=== PATIENT | female | born 1950 | race Caucasian/White ===

== ENCOUNTER → 2022-10-11 07:46 | Outpatient (BNVA) | payer OTHER, SELFPAY | PROVIDERS: PCP Family Medicine; Visit Provider Nurse Practitioner Family | DX: G25.0 Essential tremor (principal); G24.01 Drug induced subacute dyskinesia; T50.905A Adverse effect of unspecified drugs, medicaments and biological substances, initial encounter; G56.01 Carpal tunnel syndrome, right upper limb; R26.9 Unspecified abnormalities of gait and mobility; Z91.81 History of falling | CPT/HCPCS: 99212 ==

== ENCOUNTER 2023-01-30 15:54 | Outpatient (AMB) | payer OTHER, SELFPAY ==
--- NOTE | 2023-01-30 15:56 | MHC.OFFVIS ---
Intake Vital Signs 01/30/23 15:59 Height 5 ft 2 in Weight 120 lb 6 oz BMI 22.0 BP 118/76 Blood Pressure Location Rt brachial Position Sitting Pulse 75 Pulse Source Pulse Oximeter Pulse Oximetry (%) 98 Oxygen Delivery Method Room Air Intake Visit Reasons: 6m f/u plus MRI results discussion - Confirmed Intake Note: Patient presents for 6 month follow up MRI result discussion.Patient states I think I'm here for the MRI results, i have a bit of dementia and I forget things Allergies alendronate sodium Allergy (Severe, Verified 01/30/23 16:01) Rash amitriptyline Allergy (Severe, Verified 01/30/23 16:01) Hives latex Allergy (Severe, Verified 01/30/23 16:01) Hives meperidine [From Demerol] Allergy (Unknown, Verified 01/30/23 16:01) Unknown Medication List - Last Reconciled 01/30/23 by Annabella Hui, PETEY amlodipine 5 mg PO DAILY atorvastatin 40 mg PO DAILY benztropine 0.5 mg PO DAILY clonazepam 0.5 mg PO DAILY PRN docusate sodium 100 mg PO DAILY famotidine 0 mg PO gabapentin 400 mg PO TID hydroxyzine pamoate 25 mg PO BID melatonin 0 mg PO methylphenidate HCl ER 54 mg PO DAILY metoprolol succinate ER 25 mg PO DAILY mirtazapine 45 mg PO BEDTIME olanzapine 5 mg PO BEDTIME ondansetron HCl 0 mg PO pantoprazole 20 mg PO DAILY promethazine 25 mg PO BID trazodone 150 mg PO BEDTIME warfarin 5 - 10 mg PO DAILY HPI HPI Comments History of Present Illness Details 72-yr-old female presents for f/u visit. Pt denies any significant interval medical changes. Pt comes to discuss recent brain MRI results which showed ? central predominant atrophy vs NPH. Pt endorses stress urinary incontinence. Being prone to list to the left when sitting. She has had 2 interval falls- states feet just this way and that way, or she shuffles, has a sharp pain in her lower back, and then she falls. She has memroy difficulties- for many years. She continues to have tremor. 01/01/23, MRI Brain W/O Contrast FINDINGS: BRAIN and EXTRA-AXIAL SPACES: Ventricular prominence is disproportionate compared to the degree of sulcal prominence, but similar to the previous exam. No periventricular hyperintensity to suggest transependymal CSF migration. There are a few scattered nonspecific FLAIR hyperintensities in the white matter which most likely reflect chronic small vessel disease. No diffusion abnormality to indicate acute or subacute infarction. There is no hemorrhage, extra-axial collection, mass effect, shift of midline structures, or basal cistern effacement. The major intracranial vascular flow voids are preserved. EXTRACRANIAL SOFT TISSUES: There have been lens replacements bilaterally. Paranasal sinuses and mastoids are unremarkable. BONES: Marrow signal is preserved. IMPRESSION: Ventricular prominence is disproportionate compared to sulcal prominence, but this is similar to the previous exam. The imaging differential includes both central predominant atrophy and normal pressure hydrocephalus. Clinical correlation for evidence of normal pressure hydrocephalus. Nonspecific white matter signal changes most likely reflect chronic small vessel disease. [facility] Medical History (Updated 01/30/23 @ 17:30 by PETEY Schaeffer) Cirrhosis of liver CTS (carpal tunnel syndrome) Depression History of breast cancer History of hepatitis C HTN (hypertension) Osteoporosis Surgical History H/O: hysterectomy Hx of appendectomy Hx of cholecystectomy Family History Mother Cancer HTN (hypertension) Social History Alcohol intake: former Patient Tobacco Use Status: Never used Tobacco Substance Use Type: Marijuana Review of Systems Const All systems reviewed & are unremarkable except as noted in HPI and below Physical Exam Vital Signs: Last Vital Signs Pulse 75 01/30/23 15:59 BP 118/76 01/30/23 15:59 Pulse Ox 98 01/30/23 15:59 Oxygen Delivery Method Room Air 01/30/23 15:59 BMI result Body Mass Index 22.0 Const General: cooperative and no acute distress Orientation/consciousness: patient oriented x3 HEENT Head: Yes normocephalic Resp Effort & Inspection: normal respiratory effort and able to speak in complete sentences Neuro Other: A&O- mild STM lapses No oralbuccal involuntary movements noted today BUE postural tremor. Stands easily- short steps with low floor clearance, shuffling at times, narrower heel base. Gait is not magnetic. General: patient oriented x3 and CN's II-XI intact bilaterally Motor exam (neuro): 5/5 motor strength present throughout Psych Appearance: grossly normal Mental Status: mental status grossly normal Affect: normal affect Attitude: cooperative Assessment & Plan Assessment & Plan (1) Abnormal brain MRI: Code(s): R90.89 - Other abnormal findings on diagnostic imaging of central nervous system (2) Gait difficulty: Code(s): R26.9 - Unspecified abnormalities of gait and mobility (3) Essential tremor: Comment: Mother and dtr have tremor. Code(s): G25.0 - Essential tremor (4) Tardive dyskinesia: Code(s): G24.01 - Drug induced subacute dyskinesia Plan Reviewed brain MRI- Stable ventricular prominence disproportionate compared to sulcal prominence, but this is similar to the previous exam. The imaging differential includes both central predominant atrophy and normal pressure hydrocephalus. Nonspecific white matter signal changes most likely reflect chronic small vessel disease. ? Pt does endorse chronic cognitive changes, gait changes, and stress urinary incontinence. Her gait changes are not c/w that seen in NPH- her gait being a bit narrower, more Parkinsonian, may be a s/e of her chronic neuroleptic use. Will try pt on CD-LD, re-order PT, and monitor gait response. If no improvement in gait, we could consider NPH work-up, which would include a high-volume LP tap w/ pre/post gait assessment, however pt would need to have her warfarin (for a-fib tx) held. Other future considerations- DaTscan. f/u in 2-3 months or sooner prn. Medications: New carbidopa-levodopa 25-100 mg take w/ a cracker 30 minutes before breakfast and dinner, 1 tab PO BID 30 days 60 tabs 3RF Coding Level of Care Code Est Pt Level 4 (67808) Diagnoses Abnormal brain MRI R90.89 Gait difficulty R26.9 Essential tremor G25.0 Tardive dyskinesia G24.01
[2023-01-30 15:59] VITALS: BP 118/76; PULSE 75; O2SAT 98; BMI 22.0
== END 2023-01-30 16:45 ==
PROVIDERS: Visit Provider Nurse Practitioner Family
DX: R90.89 Other abnormal findings on diagnostic imaging of central nervous system (principal); R26.9 Unspecified abnormalities of gait and mobility; G25.0 Essential tremor; G24.01 Drug induced subacute dyskinesia
CPT/HCPCS: 99214

== ENCOUNTER → 2023-01-30 15:54 | Outpatient (BNVA) | payer OTHER, SELFPAY | PROVIDERS: Visit Provider Nurse Practitioner Family | DX: R26.9 Unspecified abnormalities of gait and mobility (principal); R90.89 Other abnormal findings on diagnostic imaging of central nervous system; G25.0 Essential tremor; G24.01 Drug induced subacute dyskinesia | CPT/HCPCS: 99212 ==

== ENCOUNTER 2023-07-02 09:41 | Outpatient (AMB) | payer OTHER, SELFPAY ==
[2023-07-02 10:04] VITALS: BP 132/74; PULSE 73; O2SAT 99; BMI 24.6
--- NOTE | 2023-07-02 10:04 | MHC.OFFVIS ---
Intake Vital Signs 07/02/23 10:04 Height 5 ft 2 in Weight 134 lb 4 oz BMI 24.6 BP 132/74 Blood Pressure Location Rt brachial Position Sitting Pulse 73 Pulse Source Pulse Oximeter Pulse Oximetry (%) 99 Oxygen Delivery Method Room Air Intake Visit Reasons: Follow up- Full Intake Note: Patient presents for follow up. My restless leg has been getting worst and my sleep issues are the same, Im having a lot of leg cramping too. Allergies alendronate sodium Allergy (Severe, Verified 07/02/23 10:12) Rash amitriptyline Allergy (Severe, Verified 07/02/23 10:12) Hives latex Allergy (Severe, Verified 07/02/23 10:12) Hives meperidine [From Demerol] Allergy (Unknown, Verified 07/02/23 10:12) Unknown Medication List - Last Reconciled 07/02/23 by PETEY Schaeffer amlodipine 5 mg PO DAILY atorvastatin 40 mg PO DAILY benztropine 0.5 mg PO DAILY carbidopa-levodopa 25-100 mg 1 tab PO BID 30 days clonazepam 0.5 mg PO DAILY PRN docusate sodium 100 mg PO DAILY famotidine 0 mg PO gabapentin 400 mg PO TID hydroxyzine pamoate 25 mg PO BID melatonin 0 mg PO methylphenidate HCl ER 54 mg PO DAILY metoprolol succinate ER 25 mg PO DAILY mirtazapine 45 mg PO BEDTIME olanzapine 5 mg PO BEDTIME ondansetron HCl 0 mg PO pantoprazole 20 mg PO DAILY promethazine 25 mg PO BID trazodone 150 mg PO BEDTIME warfarin 5 - 10 mg PO DAILY HPI HPI Comments History of Present Illness Details 72-yr-old female presents for f/u visit. Pt states she was admitted to [facility] in Jan-Feb for GI s/s- she states ? gastroparesis. She was discharged to [facility]- and is planning to be d/c'd to [facility] on July 25. Pt is most concerned about: She is having more headaches: Has had more in the last few months. Having 1 headache a day, lasts a few hours. 7/10 Bilateral temporal pressure or back of the neck a/w photophobia, phonophobia, nausea. Using Tylenol prn, takes the edge off. Denies recent head injury or reason for migraines returning. She has a h/o similar migraine but also migraine w/ visual aura- 1st migraine attack was in 4th grade. Her mother had severe migraine, both her dtr's have migraine. In the past, tried Imitrex- unsure of effect. Pt's current ET, TD, movement d/o medication regimen: CD-LD 25-100mg 1 tab bid- feels this has helped. Do medication effects last between doses: Yes ADL's: Ind Swallowing: Denies any issues Drooling: Denies Orthostatic lightheadedness: Sometimes, brief Constipation: Yes- manages w/ bowel regimen. Freezing: denies Stiffness: left arm stiffness- states h/o left arm fx. Oral-lingual- stable. Tremor: Varies- sometimes worse than others- BUE. Gait: When she has low back pain WHICH , she cannot move her RLE and may fall but she is using her walker more. Falls: Last fall- 2 months ago- states just lost her balance. Hallucinations: Denies Memory: Feels her memory is worsening. Sleep: sleeping ok. Exercise: not walking as much in the SNF. [facility] Medical History (Updated 07/02/23 @ 10:48 by PETEY Schaeffer) History of breast cancer Osteoporosis HTN (hypertension) Depression History of hepatitis C Cirrhosis of liver CTS (carpal tunnel syndrome) Surgical History H/O: hysterectomy Hx of appendectomy Hx of cholecystectomy Family History Mother Cancer HTN (hypertension) Social History Alcohol intake: former Patient Tobacco Use Status: Never used Tobacco Substance Use Type: Marijuana Review of Systems Const All systems reviewed & are unremarkable except as noted in HPI and below Physical Exam Vital Signs: Last Vital Signs Pulse 73 07/02/23 10:04 BP 132/74 07/02/23 10:04 Pulse Ox 99 07/02/23 10:04 Oxygen Delivery Method Room Air 07/02/23 10:04 BMI result Body Mass Index 24.6 Const General: cooperative and no acute distress Resp Effort & Inspection: normal respiratory effort and able to speak in complete sentences Neuro Other: General: Alert and oriented x3 Expression: Intact Voice: Soft Tremor: Bilateral upper extremity tremor Tone: Left elbow tone Dyskinesia: None Gait: Stance easily, steady gait, making her feet better, with walker Psych: Pleasant affect Assessment & Plan Assessment & Plan (1) Migraine without aura: Code(s): G43.009 - Migraine without aura, not intractable, without status migrainosus (2) Low back pain: Code(s): M54.50 - Low back pain, unspecified (3) Tardive dyskinesia: Code(s): G24.01 - Drug induced subacute dyskinesia (4) Essential tremor: Comment: Mother and dtr have tremor. Code(s): G25.0 - Essential tremor (5) Gait difficulty: Code(s): R26.9 - Unspecified abnormalities of gait and mobility Plan For migraine w/o aura: Start riboflavin 400 mg q.a.m. Start magnesium 400 mg q.h.s. Previous migraine prevention trials: Amitriptyline causes hives Start Nurtec ODT 75 mg q.d. p.r.n. Previous acute migraine treatment trials: Sumatriptan- unsure of affect. Acute migraine treatment [place] indications: All triptans due to the atrial fibrillation diagnosis For TD, PDism, gait difficulty: Check L-spine x-ray. Continue carbidopa levodopa 25-100 mg 1 tab b.i.d. for Continue to use 4 wheeled walker. Patient still is a resident at [facility]- patient did not come with any consultation forms to be completed. All orders printed and given to patient to give to nursing staff. Follow-up in 3 months or sooner as needed Orders: Orders XR lumbar spine 2-3V Today M54.50 - Low back pain, unspecified Medications: New apixaban (Eliquis) 5 mg PO BID magnesium oxide may hold for loose stools 400 mg PO BEDTIME 30 days 30 tabs 6RF G43.009 - Migraine without aura, not intractable, without status migrainosus rimegepant (Nurtec ODT) 75 mg PO ONCE 30 days PRN 16 tabs 6RF migraine headache MDD 1 tab G43.009 - Migraine without aura, not intractable, without status migrainosus riboflavin (vitamin B2) in am 400 mg PO DAILY 30 days 30 tabs 6RF G43.009 - Migraine without aura, not intractable, without status migrainosus Coding Level of Care Code Est Pt Level 4 (07102) Diagnoses Migraine without aura G43.009 Low back pain M54.50 Tardive dyskinesia G24.01 Essential tremor G25.0 Gait difficulty R26.9
== END 2023-07-02 10:53 | disposition home or self-care (01) ==
PROVIDERS: PCP Family Medicine; Visit Provider Nurse Practitioner Family
DX: G43.009 Migraine without aura, not intractable, without status migrainosus (principal); M54.50 Low back pain, unspecified; G24.01 Drug induced subacute dyskinesia; G25.0 Essential tremor; R26.9 Unspecified abnormalities of gait and mobility
CPT/HCPCS: 99214

== ENCOUNTER → 2023-07-02 09:41 | Outpatient (BNVA) | payer OTHER, SELFPAY | PROVIDERS: PCP Family Medicine; Visit Provider Nurse Practitioner Family | DX: G43.009 Migraine without aura, not intractable, without status migrainosus (principal); G24.01 Drug induced subacute dyskinesia; G25.0 Essential tremor; M54.50 Low back pain, unspecified; R26.9 Unspecified abnormalities of gait and mobility | CPT/HCPCS: 99212 ==

== ENCOUNTER 2023-10-04 09:23 | Outpatient (AMB) | payer OTHER, SELFPAY ==
--- NOTE | 2023-10-04 09:28 | A.OFFVIS_ITS ---
Vital Signs 10/04/23 09:29 Height 5 ft 2 in Weight 133 lb 6 oz BMI 24.4 BP 114/72 Blood Pressure Location Rt brachial Position Sitting Intake Visit Reasons: 3 month/ FU-1st phone mbx-home phon lvm Intake Note: Patient presents for 3 month follow up. Patient has fallen a few times and ge tting a lot of headaches. Allergies alendronate sodium Allergy (Severe, Verified 10/04/23 09:32) Rash amitriptyline Allergy (Severe, Verified 10/04/23 09:32) Hives latex Allergy (Severe, Verified 10/04/23 09:32) Hives meperidine [From Demerol] Allergy (Unknown, Verified 10/04/23 09:32) Unknown HPI Comments Details: 73-yr-old female presents for f/u visit. Pt denies any significant interval medical history changes. She is planning to move from [facility] to [facility] next month. Pt states today she is most concerned about her tremor. The tremor is increased both with action and rest- makes it difficult to write, hold a coffee cup. Sometimes her eyes and lips tremor, which is bothersome to her. She continues to have a daily moderate to severe migraine every day, often wakes up with the headache. She often needs to lay for 1/2-1 hr. She uses Tylenol most days prn. She did not start the B2, Mag, or prn Nurtec. Pt's current tremor medication regimen: CD-LD 25-100mg 1 tab bid. Benzotropine- 0.5mg. ADL's: Ind Swallowing: Denies any issues Drooling: Denies Orthostatic lightheadedness: Denies Constipation: Yes- manages w/ bowel regimen. GI: Prone to nausea, especially in the am. Using Zofran 8mg prn helps. Morelos snot use reglan regularly. Freezing: denies Stiffness: Some in both arms Oral-lingual movement- stable, do not interfere w/ eating. Tremor: as above Gait: Improved with using her 4 wheeled walker. Falls: She has had a few falls- feels like her legs just give out and she tips to the right or the left. Hallucinations: Denies Memory: Feels her memory is poor- more so STM lapses. Sleep: Sleeping ok. Exercise: Walking more now taht the weather is nicer. [facility] Medical History (Updated 07/02/23 @ 10:48 by PETEY Schaeffer) History of breast cancer Osteoporosis HTN (hypertension) Depression History of hepatitis C Cirrhosis of liver CTS (carpal tunnel syndrome) Surgical History H/O: hysterectomy Hx of appendectomy Hx of cholecystectomy Family History Mother Cancer HTN (hypertension) Social History Alcohol intake: former Patient Tobacco Use Status: Never used Tobacco Substance Use Type: Marijuana Review of Systems Const All systems reviewed & are unremarkable except as noted in HPI and below Physical Exam Vital Signs: Last Vital Signs BP 114/72 10/04/23 09:29 BMI result Body Mass Index 24.4 Const General: cooperative and no acute distress Resp Effort & Inspection: normal respiratory effort and able to speak in complete sentences Neuro Other: General: Alert and oriented x3 Expression: Intact Voice: Soft Tremor: Bilateral upper extremity tremor Tone: Left elbow tone Dyskinesia: Mild oral-buccal movements. Gait: Stands easily, steady gait with walker Psych: Pleasant affect Assessment & Plan Assessment & Plan (1) Essential tremor: Comment: Mother and dtr have tremor. Code(s): G25.0 - Essential tremor Category: Medical (2) Tardive dyskinesia: Code(s): G24.01 - Drug induced subacute dyskinesia Category: Medical (3) Migraine without aura: Code(s): G43.009 - Migraine without aura, not intractable, without status migrainosus Category: Medical (4) Gait difficulty: Code(s): R26.9 - Unspecified abnormalities of gait and mobility Category: Medical Plan For migraine w/o aura prevention: Start migraine prveention, to minimize prn Tylenol use and in hopes this reduces daily mod-severe migraine as well as frequent bouts of nausea. Start riboflavin 400 mg q.a.m. Start magnesium 400 mg q.h.s. Start Emgality: Loading dose 120mg sc x's 2 (240mg total dose) x's 1, then in 1 month start Maintenance dose: 120mg sc x's 1. Will need prior-auth. Continue Metoprolol- used for a-fib, BP. Previous migraine prevention trials: Amitriptyline caused hives For acute migraine tx: Start Nurtec ODT 75 mg q.d. p.r.n. Will need prior-auth. Goal to decrease prn Tylenol use- this may exacerbate headache frequency. Previous acute migraine treatment trials: Sumatriptan- unsure of affect. Acute migraine treatment Contraindications: All triptans due to the atrial fibrillation diagnosis For TD, PDism, gait difficulty: Increase carbidopa-levodopa 25-100 mg 1 tab b.i.d. to 1 tab t.i.d. May continue Benzotropine 0,5mg qhs for now. Continue to use 4 wheeled walker. [phone] to discuss above tx plan, prior auth's needed. Follow-up in 6 months or sooner as needed Coding Level of Care Code Est Pt Level 4 (28846) Diagnoses Essential tremor G25.0 Tardive dyskinesia G24.01 Migraine without aura G43.009 Gait difficulty R26.9
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
--- OUTSIDE RECORDS SUMMARY | 2023-10-04 09:28 | XMS_ITS | Continuity of Care Document ---
Author Organization [facility] Address [address] [place] [address]- Care Team Providers Care Materials Analyst Name Role Phone Jagdeep Pederson DO Primary Care Physician Encounter [facility] Date(s): 12/18/22 - 01/17/[address] [address]- Allergies, Adverse Reactions, Alerts Substance Reaction Severity Status amitriptyline hives Active alendronate Rash Active Demerol unsure Active Latex hives Active Peanuts hives Active Immunizations Given and Recorded Vaccine Date Status Refusal Reason influenza virus vaccine, inactivated 03/28/22 Qasim rded influenza virus vaccine, inactivated 1 03/03/21 Gi joseph influenza virus vaccine, inactivated 05/12/19 Give n influenza virus vaccine, inactivated 02/11/17 Qasim rded influenza virus vaccine, inactivated 2 04/18/07 Gi joseph [id number] 12y+ bivalent booster vax 03/28/22 Recorded SARS-CoV-2 [...] diphtheria-tetanus toxoids (DT) 04/22/98 Given 1Result Comment: [id number] 2Admin Note: GIVEN BY DR PINZON 3Result Comment: [id number] Medications amLODIPine 5 mg oral tablet 1 tablet, By Mouth, Daily, ^1R1., # 28 tablet, 5 Refills, Maintenance, 01/10/23 10:32:00 EDT, [facility], 156.7, cm, 01/04/23 9:40:00 EDT, Height, 53.9, kg, 12/18/22 9:23:00 EDT, Dry Weight Start Date: 01/10/23 Status: Ordered atorvastatin 80 mg oral tablet 1 tablet = 80 mg, By Mouth, Daily, # 28 tablet, 5 Refills, Maintenance, 01/04/23 9:52:00 EDT, [facility], Partial fill upon patient request if the prescription is for a schedule II opioid drug., 156.7, cm, 01/04/23 9:40:00 EDT, Height,... Start Date: 01/04/23 Status: Ordered benztropine 0.5 mg oral tablet 0.5 mg, 1, tablet, By Mouth, Daily at bedtime, # 30 tablet, Refills 0, Maintenance, 12/07/22 11:32:00 EDT, Partial fill upon patient request if the prescription is for a schedule II opioid drug. Start Date: 12/07/22 Status: Ordered clonazePAM 0.5 mg oral tablet 1 tablet = 0.5 mg, By Mouth, 2 times a day, PRN Anxiety, # 30 tablet, 0 Refills, Maintenance, 08/28/22 14:39:00 EDT, Tablet, [facility], Partial fill upon patient request if the prescription is for a schedule II opioid drug., 158.5, cm, 07/31/... Start Date: 08/28/22 Status: Ordered D3-50 oral capsule 1 capsule, By Mouth, Every week, VIAL., # 5 capsule, 0 Refills, Maintenance, 01/10/23 17:44:00 EDT,[facility], 156.7, cm, 01/04/23 9:40:00 EDT, Height, 53.9, kg, 12/18/22 9:23:00 EDT, Dry Weight Start Date: 01/10/23 Status: Ordered docusate sodium 100 mg oral capsule 1 capsule, By Mouth, Daily at bedtime, ^1R4., # 28 capsule, 5 Refills, Maintenance, 01/10/23 10:34:00 EDT, [facility], 156.7, cm, 01/04/23 9:40:00 EDT, Height, 53.9, kg, 12/18/22 9:23:00 EDT,Dry Weight Start Date: 01/10/23 Status: Ordered famotidine 40 mg oral tablet 1 tablet = 40 mg, By Mouth, Daily at bedtime, # 30 tablet, 0 Refills, Maintenance, 12/07/22 11:33:00 EDT, Tablet, Partial fill upon patient request if the prescription is for a schedule II opioid drug. Start Date: 12/07/22 Status: Ordered gabapentin 400 mg oral capsule 400 mg, 1, capsule, By Mouth, 3 times a day, # 90 capsule, Refills 1, Tot. Refills 1, Maintenance, 12/22/21 11:37:00 EDT, Route to Pharmacy Electronically, [id number], Partial fill upon patient request if the prescription is for a sche... Start Date: 12/22/21 Status: Ordered hydrOXYzine pamoate 25 mg oral capsule = 25 mg, By Mouth, Every 6 hours, PRN Anxiety, # 60 capsule, 5 Refills, Maintenance, 08/28/22 13:39:00 EDT, Capsule, [facility], Partial fill upon patient request if the prescription is for aschedule II opioid drug., 158.5, cm, 07/31/22 9:53:... Start Date: 08/28/22 Status: Ordered melatonin 3 mg oral tablet = 9 mg, By Mouth, Daily at bedtime, # 270 tablet, 5 Refills, Maintenance, 08/28/22 13:39:00 EDT, Tablet, [facility], Partial fill upon patient request if the prescription is for a schedule IIopioid drug., 158.5, cm, 07/31/22 9:53:00 EST, [facility]... Start Date: 08/28/22 Status: Ordered methylphenidate 54 mg oral tablet, extended release TAKE 1 TABLET BY MOUTH EVERY MORNING Start Date: 02/08/22 Status: Ordered Metoprolol Succinate ER 25 mg oral tablet, extended release 1 tablet, By Mouth, Daily, ^1R4., # 28 tablet, 5 Refills, Maintenance, 01/10/23 12:22:00 EDT, [facility], 156.7, cm, 01/04/23 9:40:00 EDT, Height, 53.9, kg, 12/18/22 9:23:00 EDT, Dry Weight Start Date: 01/10/23 Status: Ordered mirtazapine 30 mg oral tablet 1 tablet = 30 mg, By Mouth, Daily at bedtime, # 30 tablet, 0 Refills, Maintenance, 12/07/22 11:32:00 EDT, Tablet, Partial fill upon patient request if the prescription is for a schedule II opioid drug. Start Date: 12/07/22 Status: Ordered Nutritional Supplements See Instructions, # 30 each, Refills 11, Tot. Refills 11, Maintenance, Ensure one bottle a day -vanilla flavor, 12/26/22 6:42:00 EDT, Supply, 156.7, cm, 12/18/22 10:10:00 EDT, Height, 53.9, kg, 12/18/22 9:23:00 EDT, Dry Weight Start Date: 12/26/22 Status: Ordered olanzapine 5 mg oral tablet 5 mg, 1, tablet, By Mouth, Daily, # 30 tablet, Refills 0, Maintenance, 12/07/22 11:32:00 EDT, Partial fill upon patient request if the prescription is for a schedule II opioid drug. Start Date: 12/07/22 Status: Ordered ondansetron 4 mg oral tablet 1 tablet, By Mouth, Every 8 hours, PRN NEEDED FOR NAUSEA/VOMITING (VIAL), # 15 tablet, 0 Refills, Maintenance, 01/10/23 12:22:00 EDT, [facility], 156.7, cm, 01/04/23 9:40:00 EDT, Height, 53.9, kg, 12/18/22 9:23:00 EDT, Dry Weight Start Date: 01/10/23 Status: Ordered pantoprazole 20 mg oral delayed release tablet 1 tablet, By Mouth, Daily, ^1R1., # 28 tablet, 2 Refills, Maintenance, 01/10/23 10:32:00 EDT, 156.7, cm, 01/04/23 9:40:00 EDT, Height, 53.9, kg, 12/18/22 9:23:00 EDT, Dry Weight Start Date: 01/10/23 Status: Ordered promethazine 12.5 mg oral tablet 1 tablet = 12.5 mg, By Mouth, Every 6 hours, PRN for motion sickness, # 120 tablet, 0 Refills, Maintenance, 06/24/22 14:25:00 EST, Tablet, [facility] #[id number], Partial fill upon patient request if the prescription is for a schedule II opioid dr... Start Date: 06/24/22 Stop Date: 07/24/22 Status: Ordered propranolol 10 mg oral tablet 10 mg, 1, tablet, By Mouth, 3 times a day, # 90 tablet, Refills 0, Tot. Refills 0, Maintenance, 07/09/22 13:10:00 EST, Route to Pharmacy Electronically, [id number], Partial fill upon patient request if the prescription is for a schedule II... Start Date: 07/09/22 Status: Ordered traZODone 150 mg oral tablet 1 tablet, By Mouth, Daily at bedtime, # 28 tablet, 8 Refills, Maintenance, 08/28/22 13:39:00 EDT, [facility], 158.5, cm, 07/31/22 9:53:00 EST, Height, 63, kg, 12/12/21 15:07:00 EDT, Dry Weight Start Date: 08/28/22 Status: Ordered warfarin 5 mg oral tablet See Instructions, Take 1 to 2 tablets by mouth daily as directed by [facility], # 180 tablet, 0 Refills, Maintenance, 01/03/23 15:48:00 EDT, [facility], Partial fill upon patient requestif the prescription is for a schedule II opioid luh... Start Date: 01/03/23 Status: Ordered warfarin 5 mg oral tablet See Instructions, take 1 to 2 tablets by mouth daily as directed by [facility], # 180 tablet, 0Refills, Maintenance, 09/12/22 14:51:00 EDT, [facility] #[id number], Partial fill upon patient request if the prescription is for a schedule II opi... Start Date: 09/12/22 Status: Ordered Problem List Condition Confirmation Course Effective Dates Status Health Status Informant Gait disorder Confirmed Active Dilated cbd, acquired Confirmed Active Anxiety disorder Confirmed Active At low risk for fall Confirmed Active A-fib Confirmed Active Attention-deficit/hyper activity disorder Confirmed Active Chest pain Confirmed Active Common bile duct dilation Confirmed Active Cirrhosis Confirmed Active Cognitive disorder Confirmed Active COPD - Chronic obstructive pulmonary disease Confirmed Active CAD (coronary artery disease) Confirmed Active Disc degeneration, lumbar Confirmed Active Depression, Dr. Ministerio Villegas Confirmed Active Bladder disorder Confirmed Active Displacement of cervical intervertebral disc Confirmed Active Dyslipidemia Confirmed Active Esophageal varices Confirmed Active Essential tremor Confirmed Active Familial tremor Confirmed Active Hx of osteoporosis Confirmed Active [...] Confirmed Active Irritable bowel syndrome Confirmed Active Osteoporosis Confirmed Active PAF (paroxysmal atrial fibrillation) Confirmed Active Wellness examination Confirmed Active Screening mammogram for breast cancer Confirmed Active Thrombocytopenia Confirmed Active Prediabetes Confirmed Active Tardive dyskinesia Confirmed Active Tremor Confirmed Active Weight loss Confirmed Active Social History Social History Type Response Tobacco Other: quit 1969. Sex Implantable Device List Procedure Provider Procedure Date Device Type Site Unknown Unknown 09/14/22 Unknown Bladder Device Identifier Serial Number Lot or Batch Number Manufacturing Date Expiration Date Distinct Identification Code MRI Safety Implantable Status Assigning Authority Unknown 1 Unknown Unknown Unknown Unknown Unknown Unknown Active U nknown 1Model: Medtronic [id number] #: [id number] can turn it on and off for MRIs Patient Care team information Care Team Personnel Name: Anne Jones RN Position: [facility] RN Member Role: Primary Care Nurse Name: Jagdeep Pederson DO Position: [facility] Physician - Primary Care Member Role: PCP Address: Address: [address] [place] [address] [place] [address]- Name: Hawa Etienne RN Position: [facility] RN Member Role: Primary Care Nurse Care Team Related Persons Name: TRINI AGMING Address: home [address], [place] Name: ADAM SCHUSTER Address: home [address] [place], [place] Name: ROXY DUENAS Address: home [address] [place], [place] Name: TRINI DSOUZA Address: home [address], [place]
[2023-10-04 09:29] VITALS: BP 114/72; BMI 24.4
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
--- OUTSIDE RECORDS SUMMARY | 2023-10-04 09:29 | XMS_ITS | Continuity of Care Document ---
Author Organization [facility] Address [address] [place] [address]- Care Team Providers Care Coil Repair Technician Name Role Phone Jagdeep Pederson DO Primary Care Physician Encounter [facility] Date(s): 03/27/23 - 04/26/23 [facility] [address] [place] [address]- Allergies, Adverse Reactions, Alerts Substance Reaction Severity Status amitriptyline hives Active Demerol unsure Active alendronate Rash Active Latex hives Active Peanuts hives Active Immunizations Given and Recorded Vaccine Date Status Refusal Reason SARS-CoV-2(COVID-19)mRNA-LNP vac([id number]) 03/23/23 Recorded influenza virus vaccine, inactivated 01/26/23 Qasim rded influenza virus vaccine, inactivated 03/28/22 Qasim rded influenza virus vaccine, inactivated 1 03/03/21 Gi joseph influenza virus vaccine, inactivated 05/12/19 Give n influenza virus vaccine, inactivated 02/11/17 Qasim rded influenza virus vaccine, inactivated 2 04/18/07 Gi joseph [id number] 12y+ bivalent booster vax 03/28/22 Recorded SARS-CoV-2 [...] diphtheria-tetanus toxoids (DT) 04/22/98 Given 1Result Comment: [id number] 2Admin Note: GIVEN BY DR PINZON 3Result Comment: [id number] Medications amLODIPine 5 mg oral tablet 1 tablet, By Mouth, Daily, ^1R1., # 28 tablet, 5 Refills, Maintenance, 01/10/23 10:32:00 EDT, [facility], 156.7, cm, 01/04/23 9:40:00 EDT, Height, 53.9, kg, 12/18/22 9:23:00 EDT, Dry Weight Start Date: 01/10/23 Status: Ordered atorvastatin 80 mg oral tablet 1 tablet = 80 mg, By Mouth, Daily, # 28 tablet, 5 Refills, Maintenance, 01/04/23 9:52:00 EDT, Tablet, [facility], Partial fill upon patient request if [...] 0 Refills, Maintenance, 08/28/22 14:39:00 EDT, Tablet, [facility], Partial fill upon patient request if the prescription is for a schedule II opioid drug., 158.5, cm, 07/31/... Start Date: 08/28/22 Status: Ordered gabapentin 400 mg oral capsule 400 mg, 1, capsule, By Mouth, 3 times a day, # 120 capsule, Refills 0, Maintenance, 03/31/23 13:26:00 EST, Partial fill upon patient request if the prescription is for a schedule II opioid drug. Start Date: 03/31/23 Status: Ordered melatonin 3 mg oral tablet = 9 mg, By Mouth, Daily at bedtime, 0 Refills, Maintenance, 04/04/23 15:00:00 EST, Tablet, Partial fill upon patient request if the prescription is for a schedule II opioid drug. Start Date: 04/04/23 Status: Ordered methylphenidate 54 mg oral tablet, extended release TAKE 1 TABLET BY MOUTH EVERY MORNING Start Date: 02/08/22 Status: Ordered Metoprolol Succinate ER 25 mg oral tablet, extended release 1 tablet, By Mouth, Daily, ^1R4., # 28 tablet, 5 Refills, Maintenance, 01/10/23 12:22:00 EDT, [facility], 156.7, cm, 01/04/23 9:40:00 EDT, Height, [...] tablet, 0 Refills, Maintenance, 04/02/23 10:44:00 EST, [facility], 158.5, cm, 04/02/23 7:47:00 EST, Height, 51.6, kg, 03/31/23 17:10:00 EST, Dry Weight Start Date: 04/02/23 Status: Ordered pantoprazole 20 mg oral delayed release tablet 1 tablet, By Mouth, Daily, ^1R1., # 28 tablet, 2 Refills, Maintenance, 04/02/23 10:44:00 EST, 158.5, cm, 04/02/23 7:47:00 EST, Height, 51.6, kg, 03/31/23 17:10:00 EST, Dry Weight Start Date: 04/02/23 Status: Ordered sucralfate 1 gm oral tablet 1 Gm, 1, tablet, By Mouth, 4 times a day, # 120 tablet, Refills 0, Maintenance, 03/31/23 13:25:00 EST, Partial fill upon patient request if the prescription is for a schedule II opioid drug. Start Date: 03/31/23 Status: Ordered traZODone 50 mg oral tablet 150 mg, By Mouth, Daily at bedtime, Refills 0, Maintenance, 04/04/23 15:00:00 EST, Partial fill upon patient request if the prescription is for a schedule II opioid drug. Start Date: 04/04/23 Status: Ordered warfarin 5 mg oral tablet See Instructions, take 1 to 2 tablets by mouth daily as directed [facility], # 180 tablet, 0Refills, Maintenance, 04/17/23 16:10:00 EST, [facility], Partial fill upon patient request if the prescription is for a schedule II opioid drug... Start Date: 04/17/23 Status: Ordered Problem List Condition Confirmation Course [...] Unknown Unknown Active U nknown 1Model: Medtronic [id number] #: [id number] can turn it on and off for [...] Primary Care Member Role: PCP Address: Address: [address] [place] [address] Primary Care [place], [place] - Name: Hawa Etienne RN Position: S RN Member Role: Primary Care Nurse Name: Marianne Phelan RN Position: S RN Member Role: Primary Care Nurse Care Team Related Persons Name: TRINI GAMING Address: [address] [place], [place] Name: ADAM SCHUSTER Address: [address] [place], [place] Name: ROXY DUENAS Address: [address] [place] [address] Name: MEÑO DAVIS
--- OUTSIDE RECORDS SUMMARY | 2023-10-04 09:29 | XMS_ITS | Continuity of Care Document ---
Author Organization [facility] and Diabetes Address [address] [place] [address]- Care Team Providers Care Outside Cutter Hand Name Role Phone Jagdeep Pederson DO Primary Care Physician Encounter [facility] [place] Date(s): 12/12/22 - 01/11/23 [facility] [address] [place] [id number]- Allergies, Adverse Reactions, Alerts Substance Reaction Severity Status amitriptyline hives Active alendronate Rash Active Demerol unsure Active Latex hives Active Peanuts hives Active Immunizations Given and Recorded Vaccine Date Status Refusal Reason influenza virus vaccine, inactivated 03/28/22 Qasmi rded influenza virus vaccine, inactivated 1 03/03/21 Gi joseph influenza virus vaccine, inactivated 05/12/19 Give n influenza virus vaccine, inactivated 02/11/17 Qasim rded influenza virus vaccine, inactivated 2 04/18/07 Gi joseph [id number] 12y+ bivalent booster vax 03/28/22 Recorded SARS-CoV-2 [...] diphtheria-tetanus toxoids (DT) 04/22/98 Given 1Result Comment: [id number] 2Admin Note: GIVEN BY DR PINZON 3Result Comment: [id number] Medications amLODIPine 5 mg oral tablet 1 tablet, By Mouth, Daily, ^1R1., # 28 tablet, 5 Refills, Maintenance, 01/10/23 10:32:00 EDT, [facility], 156.7, cm, 01/04/23 9:40:00 EDT, Height, 53.9, kg, 12/18/22 9:23:00 EDT, Dry Weight Start Date: 01/10/23 Status: Ordered atorvastatin 80 mg oral tablet 1 tablet = 80 mg, By Mouth, Daily, # 28 tablet, 5 Refills, Maintenance, 01/04/23 9:52:00 EDT, Tablet, [facility], Partial fill upon patient request if [...] 0 Refills, Maintenance, 08/28/22 14:39:00 EDT, Tablet, [facility], Partial fill upon patient request if the prescription is for a schedule II opioid drug., 158.5, cm, 07/31/... Start Date: 08/28/22 Status: Ordered D3-50 oral capsule 1 capsule, By Mouth, Every week, VIAL., # 5 capsule, 0 Refills, Maintenance, 01/10/23 17:44:00 EDT,[facility], 156.7, cm, 01/04/23 9:40:00 EDT, Height, 53.9, kg, 12/18/22 9:23:00 EDT, Dry Weight Start Date: 01/10/23 Status: Ordered docusate sodium 100 mg oral capsule 1 capsule, By Mouth, Daily at bedtime, ^1R4., # 28 capsule, 5 Refills, Maintenance, 01/10/23 10:34:00 EDT, [facility], 156.7, cm, 01/04/23 9:40:00 EDT, [...] 12/22/21 11:37:00 EDT, Route to Pharmacy Electronically, [id number], Partial fill upon patient request if the prescription is for a sche... Start Date: 12/22/21 Status: Ordered hydrOXYzine pamoate 25 mg oral capsule = 25 mg, By Mouth, Every 6 hours, PRN Anxiety, # 60 capsule, 5 Refills, Maintenance, 08/28/22 13:39:00 EDT, Capsule, [facility], Partial fill upon patient request if the prescription is for aschedule II opioid drug., 158.5, cm, 07/31/22 9:53:... Start Date: 08/28/22 Status: Ordered melatonin 3 mg oral tablet = 9 mg, By Mouth, Daily at bedtime, # 270 tablet, 5 Refills, Maintenance, 08/28/22 13:39:00 EDT, Tablet, [facility], Partial fill upon patient request [...] tablet, 5 Refills, Maintenance, 01/10/23 12:22:00 EDT, [facility], 156.7, cm, 01/04/23 9:40:00 EDT, [...] tablet, 0 Refills, Maintenance, 01/10/23 12:22:00 EDT, [facility], 156.7, cm, 01/04/23 9:40:00 EDT, [...] 0 Refills, Maintenance, 06/24/22 14:25:00 EST, Tablet, [facility][id number], Partial fill upon patient request if the [...] tablet, 8 Refills, Maintenance, 08/28/22 13:39:00 EDT, [facility], 158.5, cm, 07/31/22 9:53:00 EST, Height, 63, kg, 12/12/21 15:07:00 EDT, Dry Weight Start Date: 08/28/22 Status: Ordered warfarin 5 mg oral tablet See Instructions, Take 1 to 2 tablets by mouth daily as directed by coumad[facility] clinic, # 180 tablet, 0 Refills, Maintenance, 01/03/23 15:48:00 EDT, [facility], Partial fill upon patient requestif the prescription is for a schedule II opioid luh... Start Date: 01/03/23 Status: Ordered warfarin 5 mg oral tablet See Instructions, take 1 to 2 tablets by mouth daily as directed by [facility], # 180 tablet, 0Refills, Maintenance, 09/12/22 14:51:00 EDT, [facility] #[id number], Partial fill upon patient request if the [...] Unknown Unknown Active U nknown 1Model: Medtronic [id number] #: [id number] can turn it on and off for MRIs Patient Care team information Care Team Personnel Name: Anne Jones RN Position: [facility] RN Member Role: Primary Care Nurse Name: Jagdeep Pederson DO Position: [facility] Physician - Primary Care Member Role: PCP Address: Address: [address] [place] [address] [place] [address]- Name: Hawa Etienne RN Position: [facility] RN Member Role: Primary Care Nurse Care Team Related Persons Name: TRINI GAMING Address: home [address], [place] Name: ADAM SCHUSTER Address: home [address] [place], [place] Name: ROXY DUENAS Address: home [address] [place], [place] Name: TRINI DSOUZA Address: home [address], [place]
--- OUTSIDE RECORDS SUMMARY | 2023-10-04 09:29 | XMS_ITS | Continuity of Care Document ---
Author Organization [facility] Address [address] [place] [address]- Care Team Providers Care Database Dba Name Role Phone Jagdeep Pederson DO Primary Care Physician Encounter [facility] [place] Date(s): 08/26/23 - 08/26/[address] [address]- Discharge Disposition: A-D/C Home Attending Physician: Yuliya North MD Admitting Physician: Yuliya North MD Referring Physician: Not on Staff, Referring MD Allergies, Adverse Reactions, Alerts Substance Reaction Severity Status amitriptyline hives Active Demerol unsure Active Latex hives Active Peanuts hives Active alendronate Rash Active Immunizations Given and Recorded Vaccine Date Status Refusal Reason SARS-CoV-2(COVID-19)mRNA-LNP vac([id number]) 03/23/23 Recorded influenza virus vaccine, inactivated 01/26/23 Qasim rded influenza virus vaccine, inactivated 03/28/22 Qasim rded influenza virus vaccine, inactivated 1 03/03/21 Gi joseph influenza virus vaccine, inactivated 05/12/19 Give n influenza virus vaccine, inactivated 02/11/17 Qasim rded influenza virus vaccine, inactivated 2 04/18/07 Gi joseph [id number] 12y+ bivalent booster vax 03/28/22 Recorded SARS-CoV-2 [...] diphtheria-tetanus toxoids (DT) 04/22/98 Given 1Result Comment: [id number] 2Admin Note: GIVEN BY DR PINZON 3Result Comment: [id number] Medications amLODIPine 5 mg oral tablet 1 tablet, By Mouth, Daily, ^1R1., # 28 tablet, 5 Refills, Maintenance, 01/10/23 10:32:00 EDT, [email or web address], 156.7, cm, 01/04/23 9:40:00 EDT, Height, 53.9, kg, 12/18/22 9:23:00 EDT, Dry Weight Start Date: 01/10/23 Status: Ordered atorvastatin 80 mg oral tablet 1 tablet = 80 mg, By Mouth, Daily, # 28 tablet, 5 Refills, Maintenance, 01/04/23 9:52:00 EDT, Tablet, [email or web address], Partial fill upon patient request if [...] 0 Refills, Maintenance, 08/28/22 14:39:00 EDT, Tablet, [email or web address], Partial fill upon patient request if [...] tablet, 5 Refills, Maintenance, 01/10/23 12:22:00 EDT, [facility], 156.7, cm, 01/04/23 9:40:00 EDT, Height, 53.9, kg, 12/18/22 9:23:00 EDT, Dry Weight Start Date: 01/10/23 Status: Ordered MiraLax oral powder for reconstitution See Instructions, 17 Gm By Mouth Twice daily until having daily soft bowel movements, then once daily, # 255 Gm, 0 Refills, Maintenance, 08/26/23 18:05:00 EDT, [facility], Partial fill upon patient request if the prescription is for a schedule II opio... Start Date: 08/26/23 Status: Ordered mirtazapine 30 mg oral tablet [...] tablet, 0 Refills, Maintenance, 04/02/23 10:44:00 EST, [facility], 158.5, cm, 04/02/23 7:47:00 EST, Height, 51.6, kg, 03/31/23 17:10:00 EST, Dry Weight Start Date: 04/02/23 Status: Ordered ondansetron 8 mg oral tablet, disintegrating 1 tablet = 8 mg, By Mouth, 3 times a day, PRN Nausea & Vomiting, # 12 tablet, 0 Refills, Maintenance, 08/26/23 17:41:00 EDT, [facility]t, Partial fill upon patient request if the prescription is for a schedule II opioid drug., 158, cm, 08/26/23 12:21:0... Start Date: 08/26/23 Status: Ordered pantoprazole 20 mg oral delayed [...] Exam Date Time Procedure Performing Provider Status 08/26/23 3:[address] Abd/Pelvis W/ IV + Oral Contrast Cynthia Goldsmith; Auth (Verified) Notes: (CT Abd/Pelvis W/ IV + Oral Contrast) Reason For Exam: abdominal pain;Other: RESULT: CT Abd/Pelvis W/ IV + Oral Contrast CT Abd/Pelvis W/ IV + Oral Contrast Hx of Present Illness: hx gastroparesis, no BM since , lower abd px. 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 pt provided 4mg IV zofran per EMS; Reason: Other:; abdominal pain; Clinical Question(s): Other:; abd pain, gastropareiss; Order Comment: 08 26 2023 14:36:59 EDT went to get patient and her iv was pulled out and bag on saline was on the floor and bed. no RADIO ASSEMBLER notes in [facility] TECHNIQUE: Spiral CT through the abdomen and pelvis with IV contrast formatted in 3 planes. 100 cc of Omnipaque 300 was administered intravenously. This study was performed without oral contrast. Weight-based protocol using automatic tube modulation was used to optimize exposure parameters. COMPARISON: 06/06/2023 CT angiography of the abdomen and pelvis. FINDINGS: Attic Blower View Findings, Lines and Tubes: None. Visualized Chest: Lung bases are clear. No pleural effusion. The heart is normal in size. No pericardial effusion. Collapsed right breast saline implant. Diaphragm: Normal. Liver: Mildly nodular liver surface suggesting cirrhosis/hepatic fibrosis. No focal masses. Gallbladder: Prior cholecystectomy. Bile ducts: Mild intrahepatic hepatic bile duct dilation, likely due to postcholecystectomy change. Spleen: Normal. Pancreas: Normal. Adrenal glands: Normal. Kidneys and ureters: No hydronephrosis, stones, or suspicious masses. Bladder: Normal. Reproductive organs: Prior hysterectomy. No adnexal masses. Stomach, small bowel, and large bowel: The stomach is normal. The small bowel is normal in caliber,with no evidence of bowel obstruction. Enteric contrast material reaches the ileum the rectum is normal. Large amount of stool predominantly within the ascending and transverse colon. Minimal wall thickening in the right hemicolon, particularly the ascending portion without significant surrounding inflammatory changes could indicate a mild colitis versus a component of portal colopathy. Colonic diverticulosis without findings of an acute diverticulitis. Appendix: Not seen, but no evidence of appendicitis. Peritoneum and retroperitoneum: No ascites or pneumoperitoneum. No omental or mesenteric lesions. Lymph nodes: No enlarged lymph nodes. Blood vessels: Mild vascular calcifications but no aneurysm. No evidence of venous thrombosis. Abdominal and pelvic wall: Sacral nerve stimulator with battery pack in the right gluteal region and lead terminating in the left pelvis.. Bones: No acute abnormality. IMPRESSION: 1. Large amount of stool within the colon, prominently within the ascending and transverse segments. Minimal wall thickening of the right hemicolon, without significant surrounding inflammatory changes is similar to prior study on 06/06/2023, and may indicate a mild colitis, or a component of portalcolopathy. 2. Cirrhotic liver. WSN: [id number] Ordering Physician: Jong Lopez Dictated By: Justin Hicks MD Dictated Date/Time: 08/26/23 4:23 pm Reviewed By: Justin Hicks MD Signed By: Justin Hicks MD Signed Date/Time: 08/26/23 4:23 pm Transcribed By: RAYMOND Transcribed Date/Time: 08/26/23 4:13 pm Vital Signs Most recent to oldest [Reference Range]: 1 2 3 Height 158 cm (08/26/23 12:21 PM) Weight 59.5 kg (08/26/23 12:21 PM) Oxygen Saturation [94-100 %] 97 % (08/26/23 5:37 PM) 97 % (08/26/23 3:00 PM) 98 % (08/26/23 1:26 PM) Pulse Rate [55-90 bpm] 74 bpm (08/26/23 5:37 PM) 71 bpm (08/26/23 3:00 PM) 75 bpm (08/26/23 1:26 PM) Blood Pressure [90-138/55-84 mm Hg] 140/107mm Hg *H* (08/26/23 5:37 PM) 157/62mm Hg *H* (08/26/23 3:00 PM) 143/80mm Hg *H* (08/26/23 1:26 PM) Respiratory Rate [16-30 br/min] 17 br/min (08/26/23 5:37 PM) 17 br/min (08/26/23 3:00 PM) 18 br/min (08/26/23 1:26 PM) Temperature [96.8-100.4 DegF] 98.3 DegF (08/26/23 5:00 PM) 98.5 DegF (08/26/23 12:21 PM) Mode of Delivery (Oxygen) Room air (08/26/23 5:37 PM) Room air (08/26/23 3:00 PM) Room air (08/26/23 1:26 PM) Blood pressure sites Arm, right (08/26/23 5:37 PM) Arm, right (08/26/23 3:00 PM) Arm, right (08/26/23 12:21 PM) Temperature Route Oral (08/26/23 5:00 PM) Oral (08/26/23 12:21 PM) Dry Weight 59.5 kg (08/26/23 12:21 PM) Weight Obtained Via Patient/family state d (08/26/23 12:21 PM) Social History Social History Type Response Tobacco Other: quit 1969. Sex Implantable Device List Procedure Provider Procedure Date Device Type Site Unknown Unknown 09/14/22 Unknown Bladder Device Identifier Serial Number Lot or Batch Number Manufacturing Date Expiration Date Distinct Identification Code MRI Safety Implantable Status Assigning Authority Unknown 1 Unknown Unknown Unknown Unknown Unknown Unknown Active U nknown 1Model: Medtronic [id number] #: [id number] can turn it on and off for MRIs Note * Yuliya North MD: PERFORM Event Display: Patient Education Leaflets Authored Date: [id number] Constipation (Adult) ?? [id number] Constipation (Adult) Constipation means that you have bowel movements that are less frequent than usual. Stools often become very hard and difficult to pass. Constipation is very common. At some point in life, it affects almost everyone. Since everyone's bowel habits are different, what is constipation to one person may not be to another. Your healthcare provider may do tests to diagnose constipation. It depends on what??they??find when evaluating you. Symptoms of constipation include: ??? Abdominal pain ??? Bloating ??? Vomiting ??? Painful bowel movements ??? Itching, swelling, bleeding, or pain around the anus Causes Constipation can have many causes. These include: ??? Diet low in fiber ??? Too much dairy ??? Not drinking enough liquids ??? Lack of exercise or physical activity (especially true for older adults)??? Changes in lifestyle or daily routine, including , aging, work, and travel ??? Frequent use or misuse of laxatives ??? Ignoring the urge to have a bowel movement or delaying it until later ??? Medicines, such as certain prescription pain medicines, iron supplements, antacids, certain antidepressants, and calcium supplements ??? Diseases like irritable bowel syndrome, bowel obstructions, stroke, diabetes, thyroid disease, Parkinson disease, hemorrhoids, and colon cancer ?? Complications Possible complications of constipation can include: ??? Hemorrhoids ??? Rectal bleeding from hemorrhoids or anal fissures??(skin tears) ??? Hernias ??? Chronic constipation ??? Fecal impaction, a severe form of constipation in which a large amount of hard stool is in your rectum that you can't pass??? Bowel obstruction or perforation ?? Home care All treatment should be done after talking with your healthcare provider. This is especially true if you have another medical problem, are taking prescription medicines, or are an older adult. Treatment most often involves lifestyle changes. You may also need medicines. Your healthcare provider will tell you which will work best for you. Follow the advice below to help avoid this problem in the future. ?? Lifestyle changes These lifestyle changes can help prevent constipation: ??? Diet. Eat a high- fiber diet, with fresh fruit and vegetables, and reduce dairy intake, meats, and processed foods ??? Fluids. It's importantto get enough fluids each day. Drink plenty of water when you eat more fiber. If you are on diet that limits the amount of fluid you can have, talk about this with your healthcare provider. ??? Regular exercise. Check with your healthcare provider first. ?? Medicines Take any medicines as directed. Some laxatives are safe to use only every now and then. Others can be taken on a regular basis. While laxatives don't cause bowel dependence, they are treating the symptoms. So your constipation may return if you don't make other changes. Talk with your healthcare provider or pharmacist if you have questions. Prescription pain medicines can cause constipation. If you are taking this kind of medicine, ask your healthcare provider if you should also take a stool softener. Medicines you may take to treat constipation include: ??? Fiber supplements ??? Stool softeners ???Laxatives ??? Enemas ??? Rectal suppositories ?? Follow-up care Follow up with your healthcare provider if symptoms don't get better in the next few days. You may need to have more tests or see a specialist. ?? Call 911 Call 911 if any of these occur: ??? Trouble breathing ??? Stiff, rigid abdomen that is severely painful to touch ??? Large amount of blood in the stool ??? Confusion ??? Fainting or loss of consciousness ??? Rapid heart rate ??? Chest pain ?? When to seek medical advice Call your healthcare provider right away if any of these occur: ??? Fever of 100.4??F (38??C) or higher, or as directed by your healthcare provider ??? Failure to resume normal bowel movements ??? Pain in your abdomen or back gets worse ??? Nausea or vomiting ??? Swelling in your abdomen ??? Small amount of blood in the stool ??? Black, tarry stool ??? Involuntary weight loss ??? Weakness ?? Last Reviewed Date: 2021 ?? [id number] [employer]. All rights reserved. This information is not intended as a substitute for professional medical care. Always follow your healthcare professional's instructions. ?? Patient Care team information Care Team Personnel Name: Lily Mulligan RN Position: [facility] RN Member Role: Primary Care Nurse Name: Anne Jones RN Position: [facility] RN Member Role: Primary Care Nurse Name: Fred Islas RN Position: [facility] RN Supv Member Role: Primary Care Nurse Name: Jagdeep Pederson DO Position: [facility] Physician - Primary Care Member Role: PCP Address: Address: [address] [place] [address] [place], [place] [address] Name: Haaw Etienne RN Position: [facility] RN Member Role: Primary Care Nurse Name: Marianne Phelan RN Position: [facility] RN Member Role: Primary Care Nurse Care Team Related Persons Name: TRINI GAMING Address: home [address] [place] [address] Name: ADAM SCHUSTER Address: [address] [place] [address] Name: ROXY DUENAS Address: home [address] [place] [address] Name: YULIYA DAVIS Address: [place] [address]
--- OUTSIDE RECORDS SUMMARY | 2023-10-04 09:29 | XMS_ITS | Continuity of Care Document ---
Author Organization [facility] Address [address] [place] [address]- Care Team Providers Care Miller Head Assistant Wet Process Name Role Phone Jagdeep Pederson DO Primary Care Physician Encounter [facility] Date(s): 03/25/23 - 04/24/23 [facility] [address] [place], [place] [address] Allergies, Adverse Reactions, Alerts Substance Reaction Severity Status amitriptyline hives Active alendronate Rash Active Demerol unsure Active Latex hives Active Peanuts hives Active Immunizations Given and Recorded Vaccine Date Status Refusal Reason SARS-CoV-2(COVID-19)mRNA-LNP vac([id number]) 03/23/23 Recorded influenza virus vaccine, inactivated 01/26/23 Qasim rded influenza virus vaccine, inactivated 03/28/22 Qasim rded influenza virus vaccine, inactivated 1 03/03/21 Gi joseph influenza virus vaccine, inactivated 05/12/19 Give n influenza virus vaccine, inactivated 02/11/17 Qasim rded influenza virus vaccine, inactivated 2 04/18/07 Gi joseph [id number] 12y+ bivalent booster vax 03/28/22 Recorded SARS-CoV-2 [...] diphtheria-tetanus toxoids (DT) 04/22/98 Given 1Result Comment: [id number] 2Admin Note: GIVEN BY DR PINZON 3Result Comment: [id number] Medications amLODIPine 5 mg oral tablet 1 [...] 5 Refills, Maintenance, 01/04/23 9:52:00 EDT, Tablet, [email or web address], Partial fill upon patient request if [...] 0 Refills, Maintenance, 08/28/22 14:39:00 EDT, Tablet, [email or web address], Partial fill upon patient request if [...] tablet, 5 Refills, Maintenance, 01/10/23 12:22:00 EDT, [facility], 156.7, cm, 01/04/23 9:40:00 EDT, Height, [...] tablet, 0 Refills, Maintenance, 04/02/23 10:44:00 EST, [email or web address], 158.5, cm, 04/02/23 7:47:00 EST, Height, [...] 180 tablet, 0Refills, Maintenance, 04/17/23 16:10:00 EST, [email or web address], Partial fill upon patient request if [...] Unknown Unknown Active U nknown 1Model: Medtronic [id number] #: [id number] can turn it on and off for [...] Primary Care Member Role: PCP Address: Address: [address] [place] [address] Primary [place], [place] - Name: Hawa Etienne RN Position: S RN Member Role: Primary Care Nurse Name: Marianne Phelan RN Position: S RN Member Role: Primary Care Nurse Care Team Related Persons Name: TRINI GAMING Address: [address] [place], [place] Name: ADAM SCHUSTER Address: [address] [place], [place] Name: ROXY DUENAS Address: [address] [place] [address] Name: MEÑO DAVIS
--- OUTSIDE RECORDS SUMMARY | 2023-10-04 09:30 | XMS_ITS | Continuity of Care Document ---
Author Organization [facility] Address [address] [place] [address]- Care Team Providers Care Stock Shaper Name Role Phone Jagdeep Pederson DO Primary Care Physician [facility] [place]): [place]15[place]22 - 11/14/22 [facility] [address] [place] [address] Attending Physician: AdmRochelle moraes Admitting Physician: Admtr, Ar8 Referring Physician: Admtr, Ar8 Allergies, Adverse Reactions, [...] virus vaccine, inactivated 2 04/18/07 Gi joseph [id number] 12y+ bivalent booster vax 03/28/22 Recorded SARS-CoV-2 [...] diphtheria-tetanus toxoids (DT) 04/22/98 Given 1Result Comment: [id number] 2Admin Note: GIVEN BY DR PINZON 3Randrez Comment: [id number] Medications amLODIPine 5 mg oral tablet 1 tablet, By Mouth, Daily, # 28 tablet, 5 Refills, Maintenance, 08/28/22 13:39:00 EDT, [facility], 158.5, cm, 07/31/22 9:53:00 EST, Height, 63, kg, 12/12/21 15:07:00 EDT, Dry Weight Start Date: 08/28/22 Status: Ordered atorvastatin 40 mg oral tablet 1 tablet, By Mouth, Daily, # 28 tablet, 5 Refills, Maintenance, 08/28/22 13:39:00 EDT, [facility], 158.5, cm, 07/31/22 9:53:00 EST, Height, 63, kg, 12/12/21 15:07:00 EDT, Dry Weight Start Date: 08/28/22 Status: Ordered clonazePAM 0.5 mg oral tablet 1 tablet = 0.5 mg, By Mouth, 2 times a day, PRN Anxiety, # 30 tablet, 0 Refills, Maintenance, 08/28/22 14:39:00 EDT, Tablet, [facility], Partial fill upon patient request if the prescription is for a schedule II opioid drug., 158.5, cm, ... Start Date: 08/28/22 Status: Ordered docusate sodium 100 mg oral capsule 1 capsule, By Mouth, Daily at bedtime, # 28 capsule, 5 Refills, Maintenance, 08/28/22 13:39:00 EDT,[facility], 158.5, cm, 07/31/22 9:53:00 EST, Height, 63, kg, 12/12/21 15:07:00 EDT, Dry Weight Start Date: 08/28/22 Status: Ordered gabapentin 400 mg oral capsule 400 mg, 1, capsule, By Mouth, 3 times a day, # 90 capsule, Refills 1, Tot. Refills 1, Maintenance, 12/22/21 11:37:00 EDT, Route to Pharmacy Electronically, [facility] #[id number], Partial fill upon patient request if the prescription is for a sche... Start Date: 12/22/21 Status: Ordered hydrOXYzine pamoate 25 mg oral capsule = 25 mg, By Mouth, Every 6 hours, PRN Anxiety, # 60 capsule, 5 Refills, Maintenance, 08/28/22 13:39:00 EDT, Capsule, [facility], Partial fill upon patient request if the prescription is for aschedule II opioid drug., 158.5, cm, 07/31/22 9:53:... Start Date: 08/28/22 Status: Ordered melatonin 3 mg oral tablet = 9 mg, By Mouth, Daily at bedtime, # 270 tablet, 5 Refills, Maintenance, 08/28/22 13:39:00 EDT, Tablet, [facility], Partial fill upon patient request if the prescription is for a schedule IIopioid drug., 158.5, cm, 07/31/22 9:53:00 EST, [facility]... Start Date: 08/28/22 Status: Ordered methylphenidate 54 mg oral tablet, extended release TAKE 1 TABLET BY MOUTH EVERY MORNING Start Date: 02/08/22 Status: Ordered Metoprolol Succinate ER 25 mg oral tablet, extended release 1 tablet, By Mouth, Daily, # 28 tablet, 5 Refills, Maintenance, 08/28/22 13:41:00 EDT, [facility], 158.5, cm, 07/31/22 9:53:00 EST, Height, 63, kg, 12/12/21 15:07:00 EDT, Dry Weight Start Date: 08/28/22 Status: Ordered Nutritional Supplements See Instructions, # 30 each, Refills 11, Tot. Refills 11, Maintenance, Ensure one bottle a day -vanilla flavor, 05/08/22 6:40:00 EST, Supply Start Date: 05/08/22 Status: Ordered ondansetron 4 mg oral tablet 1 tablet, By Mouth, Every 8 hours, PRN NEEDED FOR NAUSEA/VOMITING (VIAL), # 15 tablet, 0 Refills, Maintenance, 10/04/22 10:12:00 EDT, [facility], 157.5, cm, 09/12/22 9:53:00 EDT, Height, 55.5, kg, 09/12/22 9:53:00 EDT, Dry Weight Start Date: 10/04/22 Status: Ordered ondansetron 4 mg oral tablet, disintegrating 1 tablet = 4 mg, By Mouth, Every 6 hours, PRN as needed for nausea/vomiting, for 21 days, Use sparingly take for nausea and vomiting, # 84 tablet, 0 Refills, Acute 11/18/22 11:29:00 EDT, 10/28/22 11:29:00 EDT, DIS Tablet, [facility] #[id number], P... Start Date: 10/28/22 Stop Date: 11/18/22 Status: Ordered pantoprazole 20 mg oral delayed release tablet 1 tablet, By Mouth, Daily, # 28 tablet, 5 Refills, Maintenance, 08/28/22 13:39:00 EDT, 158.5, cm, 07/31/22 9:53:00 EST, Height, 63, kg, 12/12/21 15:07:00 EDT, Dry Weight Start Date: 08/28/22 Status: Ordered promethazine 12.5 mg oral tablet 1 tablet = 12.5 mg, By Mouth, Every 6 hours, PRN for motion sickness, # 120 tablet, 0 Refills, Maintenance, 06/24/22 14:25:00 EST, Tablet, [facility] #[id number], Partial fill upon patient request if the [...] tablet, 8 Refills, Maintenance, 08/28/22 13:39:00 EDT, [facility], 158.5, cm, 07/31/22 9:53:00 EST, Height, 63, kg, 12/12/21 15:07:00 EDT, Dry Weight Start Date: 08/28/22 Status: Ordered Vitamin D3 50,000 intl units oral capsule 1 capsule = 1,250 mcg, By Mouth, Every week, # 5 capsule, 1 Refills, Maintenance, 10/23/22 11:12:00EDT, [email or web address], Partial fill upon patient request if the prescription is for a schedule IIopioid drug., 156.7, cm, 10/15/22 9:01:00 EDT, .. Start Date: 10/23/22 Stop Date: 12/22/22 Status: Ordered warfarin 5 mg oral tablet See Instructions, Take 1 to 2 tablets by mouth daily as directed by [facility] clinic, # 180 tablet, 0 Refills, Maintenance, 08/29/22 15:13:00 EDT, [email or web address], Partial fill upon patient requestif the prescription is for a schedule II opioid luh... Start Date: 08/29/22 Status: Ordered warfarin 5 mg oral tablet See Instructions, take 1 to 2 tablets by mouth daily as directed by [facility], # 180 tablet, 0Refills, Maintenance, 09/12/22 14:51:00 EDT, [facility] #[id number], Partial fill upon patient request if the prescription is for a schedule II opi... Start Date: 09/12/22 Status: Ordered Problem List Condition Confirmation Course Effective Dates Status H ealth Status Informant Gait disorder Confirmed Active Dilated cbd, acquired Confirmed Active Anxiety disorder Confirmed Active At low risk for fall Confirmed Active A-fib Confirmed Active Attention-deficit/hype ractivity disorder Confirmed Active Breast cancer DCIS; Rt. mastectomy, reconstruction Confirmed 2003 Active Chest pain Confirmed Active Common bile duct dilation Confirmed Active Cirrhosis Confirmed Active Cognitive disorder Confirmed Active COPD - Chronic obstructive pulmonary disease Confirmed Active Disc degeneration, lumbar Confirmed Active Depression, Dr. Ministerio Villegas Confirmed Active Bladder disorder Confirmed Active Displacement of cervical intervertebral disc Confirmed Active Dyslipidemia Confirmed Active Esophageal varices Confirmed Active Familial tremor Confirmed Active Hx of osteoporosis Confirmed Active Hearing loss on right Confirmed Active Hepatitis C, Tx'ed interferon Confirmed Active History of adenomatous polyp of colon Confirmed Active Hx of breast cancer Confirmed Active Hyperglycemia Confirmed Active Hypertension Confirmed Active Balance problem Confirmed Active Balance disorder Confirmed Active Insomnia Confirmed Active Irritable bowel syndrome Confirmed Active Osteoporosis Confirmed Active PAF (paroxysmal atrial fibrillation) Confirmed Active Wellness examination Confirmed Active Screening mammogram for breast cancer Confirmed Active Thrombocytopenia Confirmed Active Prediabetes Confirmed Active Tremor Confirmed Active Weight loss [...] Unknown Unknown Active U nknown 1Model: Medtronic [id number] #: [id number] can turn it on and off for MRIs Radiology * Event Display: Bone Density, Non-BH Authored Date: Patient Care team information Care Team Personnel Name: Anne Jones RN Position: [facility] RN Member Role: Primary Care Nurse Name: Jagdeep Pederson DO Position: [facility] Physician - Primary Care Member Role: PCP Address: Address: [address] [place] [id number]- Name: Hawa Etienne RN Position: [facility] RN Member Role: Primary Care Nurse Care Team Related Persons Name: TRINI GAMING Address: home [address], [place] Name: ADAM SCHUSTER Address: home [address] [place], [place] Name: ROXY DUENAS Address: home [address], [place] Name: TRINI DSOUZA Address: home [address], [place]
--- OUTSIDE RECORDS SUMMARY | 2023-10-04 09:30 | XMS_ITS | Continuity of Care Document ---
Author Organization [facility] [place] Address [address] [place] [address]- Care Team Providers Care Manager Banking Name Role Phone Jagdeep Pederson DO Primary Care Physician Encounter [facility] Date(s): 07/08/23 - 08/07/23 [facility] [place] [address] [place] [address]- Allergies, Adverse Reactions, Alerts Substance Reaction Severity Status amitriptyline hives Active Demerol unsure Active alendronate Rash Active Latex hives Active Peanuts hives Active Immunizations Given and Recorded Vaccine Date Status Refusal Reason SARS-CoV-2(COVID-19)mRNA-LNP vac([id number]) 03/23/23 Recorded influenza virus vaccine, inactivated 01/26/23 Qasim rded influenza virus vaccine, inactivated 03/28/22 Qasim rded influenza virus vaccine, inactivated 1 03/03/21 Gi joseph influenza virus vaccine, inactivated 05/12/19 Give n influenza virus vaccine, inactivated 02/11/17 Qasim rded influenza virus vaccine, inactivated 2 04/18/07 Gi joseph [id number] 12y+ bivalent booster vax 03/28/22 Recorded SARS-CoV-2 [...] diphtheria-tetanus toxoids (DT) 04/22/98 Given 1Result Comment: [id number] 2Admin Note: GIVEN BY DR PINZON 3Remilyult Comment: [id number] Medications amLODIPine 5 mg oral tablet 1 tablet, By Mouth, Daily, ^1R1., # 28 tablet, 5 Refills, Maintenance, 01/10/23 10:32:00 EDT, [facility], 156.7, cm, 01/04/23 9:40:00 EDT, Height, 53.9, kg, 12/18/22 9:23:00 EDT, Dry Weight Start Date: 01/10/23 Status: Ordered atorvastatin 80 mg oral tablet 1 tablet = 80 mg, By Mouth, Daily, # 28 tablet, 5 Refills, Maintenance, 01/04/23 9:52:00 EDT, Tablet, [facility], Partial fill upon patient request if [...] 0 Refills, Maintenance, 08/28/22 14:39:00 EDT, Tablet, [facility], Partial fill upon patient request if the prescription is for a schedule II opioid drug., 158.5, cm, 07/31/... Start Date: 08/28/22 Status: Ordered Eliquis 5 [...] tablet, 0 Refills, Maintenance, 04/02/23 10:44:00 EST, [facility], 158.5, cm, 04/02/23 7:47:00 EST, Height, [...] Unknown Unknown Active U nknown 1Model: Medtronic [id number] #: [id number] can turn it on and off for MRIs Patient Care team information Care Team Personnel Name: Lily Mulligan RN Position: S RN Member Role: Primary Care Nurse Name: Anne Jones RN Position: S RN Member Role: Primary Care Nurse Name: Fred Islas RN Position: S RN Supv Member Role: Primary Care Nurse Name: Jagdeep Pederson DO Position: [facility] Physician - Primary Care Member Role: PCP Address: Address: [address] [place] [address]- Name: Hawa Etienne RN Position: S RN Member Role: Primary Care Nurse Name: Marianne Phelan RN Position: S RN Member Role: Primary Care Nurse Care Team Related Persons Name: TRINI GAMING Address: home [address] [place] [address] Name: ADAM SCHUSTER Address: [address] [place] [address] Name: ROXY DUENAS Address: home [address] [place] [address] Name: MEÑO DAVIS Address: [place] [address]
--- OUTSIDE RECORDS SUMMARY | 2023-10-04 09:30 | XMS_ITS | Continuity of Care Document ---
Author Organization [facility] [place] Address [address] [place] [address]- Care Team Providers Care Supervisor Ski Production Name Role Phone Jagdeep Pederson DO Primary Care Physician Encounter [facility] Date(s): 03/25/23 - 04/24/23 [facility] [place] [address] [place] [address]- Allergies, Adverse Reactions, Alerts Substance Reaction Severity Status amitriptyline hives Active alendronate Rash Active Demerol unsure Active Latex hives Active Peanuts hives Active Immunizations Given and Recorded Vaccine Date Status Refusal Reason SARS-CoV-2(COVID-19)mRNA-LNP vac([id number]) 03/23/23 Recorded influenza virus vaccine, inactivated 01/26/23 Qasim rded influenza virus vaccine, inactivated 03/28/22 Qasim rded influenza virus vaccine, inactivated 1 03/03/21 Gi joseph influenza virus vaccine, inactivated 05/12/19 Give n influenza virus vaccine, inactivated 02/11/17 Qasim rded influenza virus vaccine, inactivated 2 04/18/07 Gi joseph [id number] 12y+ bivalent booster vax 03/28/22 Recorded SARS-CoV-2 [...] diphtheria-tetanus toxoids (DT) 04/22/98 Given 1Result Comment: [id number] 2Admin Note: GIVEN BY DR PINZON 3Result Comment: [id number] Medications amLODIPine 5 mg oral tablet 1 [...] 5 Refills, Maintenance, 01/04/23 9:52:00 EDT, Tablet, [facility], Partial fill upon patient request if [...] 0 Refills, Maintenance, 08/28/22 14:39:00 EDT, Tablet, [facility], Partial fill upon patient request if [...] tablet, 5 Refills, Maintenance, 01/10/23 12:22:00 EDT, [facility], 156.7, cm, 01/04/23 9:40:00 [...] tablet, 0 Refills, Maintenance, 04/02/23 10:44:00 EST, [facility], 158.5, cm, 04/02/23 7:47:00 EST, Height, [...] 180 tablet, 0Refills, Maintenance, 04/17/23 16:10:00 EST, [facility], Partial fill upon patient request if [...] Unknown Unknown Active U nknown 1Model: Medtronic [id number] #: [id number] can turn it on and off for [...] Primary Care Member Role: PCP Address: Address: [address] [place] [address] Primary Care [place], [place] - Name: Hawa Etienne RN Position: S RN Member Role: Primary Care Nurse Name: Marianne Phelan RN Position: S RN Member Role: Primary Care Nurse Care Team Related Persons Name: TRINI GAMING Address: [address] [place], [place] Name: ADAM SCHUSTER Address: [address] [place], [place] Name: ROXY DUENAS Address: home [address] [place] [address] Name: MEÑO DAVIS
--- OUTSIDE RECORDS SUMMARY | 2023-10-04 09:30 | XMS_ITS | Continuity of Care Document ---
Author Organization [facility] Address [address] [place] [address]- Care Team Providers Care Plate Worker Helper Name Role Phone Jagdeep Pederson DO Primary Care Physician Encounter [facility] Date(s): 04/02/23 - 05/02/23 [facility] [address] [place] [address] Allergies, Adverse Reactions, Alerts Substance Reaction Severity Status amitriptyline hives Active alendronate Rash Active Demerol unsure Active Latex hives Active Peanuts hives Active Immunizations Given and Recorded Vaccine Date Status Refusal Reason SARS-CoV-2(COVID-19)mRNA-LNP vac([id number]) 03/23/23 Recorded influenza virus vaccine, inactivated 01/26/23 Qasim rded influenza virus vaccine, inactivated 03/28/22 Qasim rded influenza virus vaccine, inactivated 1 03/03/21 Gi joseph influenza virus vaccine, inactivated 05/12/19 Give n influenza virus vaccine, inactivated 02/11/17 Qasim rded influenza virus vaccine, inactivated 2 04/18/07 Gi joseph [id number] 12y+ bivalent booster vax 03/28/22 Recorded SARS-CoV-2 [...] diphtheria-tetanus toxoids (DT) 04/22/98 Given 1Result Comment: [id number] 2Admin Note: GIVEN BY DR PINZON 3Result Comment: [id number] Medications amLODIPine 5 mg oral tablet 1 tablet, By Mouth, Daily, ^1R1., # 28 tablet, 5 Refills, Maintenance, 01/10/23 10:32:00 EDT, [facility], 156.7, cm, 01/04/23 9:40:00 EDT, Height, 53.9, kg, 12/18/22 9:23:00 EDT, Dry Weight Start Date: 01/10/23 Status: Ordered atorvastatin 80 mg oral tablet 1 tablet = 80 mg, By Mouth, Daily, # 28 tablet, 5 Refills, Maintenance, 01/04/23 9:52:00 EDT, Tablet, [facility], Partial fill upon patient request if [...] 0 Refills, Maintenance, 08/28/22 14:39:00 EDT, Tablet, [facility], Partial fill upon patient request if [...] tablet, 5 Refills, Maintenance, 01/10/23 12:22:00 EDT, [facility], 156.7, cm, 01/04/23 9:40:00 EDT, [...] tablet, 0 Refills, Maintenance, 04/02/23 10:44:00 EST, [facility], 158.5, cm, 04/02/23 7:47:00 EST, Height, [...] 180 tablet, 0Refills, Maintenance, 04/17/23 16:10:00 EST, [facility], Partial fill upon patient request if [...] degeneration, lumbar Confirmed Active Depression, Dr. Ministerio Stone Confirmed Active Bladder disorder Confirmed Active Displacement [...] Unknown Unknown Active U nknown 1Model: Medtronic [id number] #: [id number] can turn it on and off for [...] Primary Care Member Role: PCP Address: Address: [address] [place] [address] Primary Care [place], [place] [facility] Name: Hawa Etienne RN Position: S RN Member Role: Primary Care Nurse Name: Marianne Phelan RN Position: S RN Member Role: Primary Care Nurse Care Team Related Persons Name: TRINI GAMING Address: [address] [place], [place] Name: ADAM SCHUSTER Address: [address] [place], [place] Name: ROXY DUENAS Address: home [address] [place] [address] Name: MEÑO DAVIS
--- OUTSIDE RECORDS SUMMARY | 2023-10-04 09:30 | XMS_ITS | Continuity of Care Document ---
Author Organization [facility] Address [address] [place] [address]- Care Team Providers Care Sulfide Head Operator Name Role Phone Jagdeep Pederson DO Primary Care Physician [place] [facility] [place] 02/11/23 - 03/13/23 [facility] [address] [place] [address]- Attending Physician: Rochelle Hernandez Admitting Physician: AdmtrRochelle Referring Physician: Admtr, Ar8 [...] virus vaccine, inactivated 2 04/18/07 Gi joseph [id number] 12y+ bivalent booster vax 03/28/22 Recorded SARS-CoV-2 [...] diphtheria-tetanus toxoids (DT) 04/22/98 Given 1Result Comment: [id number] 2Admin Note: GIVEN BY DR PINZON 3Result Comment: [id number] Medications amLODIPine 5 mg oral tablet 1 [...] 5 Refills, Maintenance, 01/04/23 9:52:00 EDT, Tablet, [facility], Partial fill upon patient request if [...] 0 Refills, Maintenance, 08/28/22 14:39:00 EDT, Tablet, [facility], Partial fill upon patient request if the prescription is for a schedule II opioid drug., 158.5, cm, ... Start Date: 08/28/22 Status: Ordered D3-50 oral capsule 1 tablet, By Mouth, Every week, VIAL., # 5 capsule, 0 Refills, Maintenance, 02/21/23 9:07:00 EDT, [facility], 158, cm, 02/14/23 11:08:00 EDT, Height, 52.8, kg, 02/13/23 13:18:00 EDT, Dry Weight Start Date: 02/21/23 Status: Ordered docusate sodium 100 mg oral capsule 1 capsule, By Mouth, Daily at bedtime, ^1R4., # 28 capsule, 5 Refills, Maintenance, 01/10/23 10:34:00 EDT, [facility], 156.7, cm, 01/04/23 9:40:00 EDT, [...] 12/22/21 11:37:00 EDT, Route to Pharmacy Electronically, [facility] #[id number], Partial fill upon patient request if the prescription is for a sche... Start Date: 12/22/21 Status: Ordered hydrOXYzine pamoate 25 mg oral capsule = 25 mg, By Mouth, Every 6 hours, PRN Anxiety, # 60 capsule, 5 Refills, Maintenance, 08/28/22 13:39:00 EDT, Capsule, [facility], Partial fill upon patient request if the prescription is for aschedule II opioid drug., 158.5, cm, 07/31/22 9:53:... Start Date: 08/28/22 Status: Ordered melatonin 3 mg oral tablet = 9 mg, By Mouth, Daily at bedtime, # 270 tablet, 5 Refills, Maintenance, 08/28/22 13:39:00 EDT, Tablet, [facility], Partial fill upon patient request [...] tablet, 5 Refills, Maintenance, 01/10/23 12:22:00 EDT, [facility], 156.7, cm, 01/04/23 9:40:00 EDT, [...] tablet, 0 Refills, Maintenance, 03/04/23 10:28:00 EDT, [facility], 158, cm, 03/04/23 7:43:00 EDT, Height, 49.6, kg, 02/26/23 23:24:00 EDT, Dry Weight Start Date: 03/04/23 Status: Ordered pantoprazole 40 mg oral delayed release tablet 1 tablet = 40 mg, By Mouth, 2 times a day, # 60 tablet, 0 Refills, Maintenance, 02/14/23 11:04:00 EDT, CR Tablet, 158, cm, 02/14/23 7:22:00 EDT, Height, 52.8, kg, 02/13/23 13:18:00 EDT, Dry Weight Start Date: 02/14/23 Status: Ordered promethazine 12.5 mg oral tablet 1 tablet = 12.5 mg, By Mouth, Every 6 hours, PRN for motion sickness, # 120 tablet, 0 Refills, Maintenance, 06/24/22 14:25:00 EST, Tablet, [facility][id number], Partial fill upon patient request if the [...] schedule II... Start Date: 07/09/22 Status: Ordered Senna 8.6 mg oral tablet 17.2 mg, 2, tablet, By Mouth, Daily at bedtime, for 30 days, # 60 tablet, Refills 0, Tot. Refills 0, Acute, 03/16/23 11:05:00 EDT, 02/14/23 11:05:00 EDT, Route to Pharmacy Electronically, [facility] #[id number], Partial fill upon patient request i... Start Date: 02/14/23 Stop Date: 03/16/23 Status: Ordered traZODone 150 mg oral tablet 1 tablet, By Mouth, Daily at bedtime, # 28 tablet, 8 Refills, Maintenance, 08/28/22 13:39:00 EDT, [facility], 158.5, cm, 07/31/22 9:53:00 EST, Height, 63, kg, 12/12/21 15:07:00 EDT, Dry Weight Start Date: 08/28/22 Status: Ordered trimethobenzamide 300 mg oral capsule 1 capsule = 300 mg, By Mouth, 3 times a day, PRN as needed for nausea/vomiting, # 45 capsule, 0 Refills, Acute 08/03/23 13:06:00 EST, 02/15/23 13:05:00 EDT, Capsule, [facility] #[id number], Partial fill upon patient request if the prescription is... Start Date: 02/15/23 Stop Date: 08/03/23 Status: Ordered warfarin 5 mg oral tablet See Instructions, take 1 to 2 tablets by mouth daily as directed [facility], # 180 tablet, 0Refills, Maintenance, 03/04/23 10:40:00 EDT, [facility] #[id number], Partial fill upon patient request if the [...] Active Gastritis Confirmed Active Gastritis Confirmed Active Hx of osteoporosis Confirmed Active [...] Unknown Unknown Active U nknown 1Model: Medtronic [id number] #: [id number] can turn it on and off for MRIs Patient Care team information Care Team Personnel Name: Jo Grijalva RN Position: [facility] RN Supv Member Role: Primary Care Nurse Name: Lily Mulligan RN Position: S RN Member Role: Primary Care Nurse Name: Anne Jones RN Position: S RN Member Role: Primary Care Nurse Name: Fred Islas RN Position: [facility] RN Supv Member Role: Primary Care Nurse Name: Jagdeep Pederson DO Position: [facility] Physician - Primary Care Member Role: PCP Address: Address: [address] [place] [address] Name: Hawa Etienne RN Position: [facility] RN Member Role: Primary Care Nurse Name: Marianne Phelan RN Position: [facility] RN Member Role: Primary Care Nurse Care Team Related Persons Name: TRINI GAMING Address: [address] [place] [address] Name: ADAM SCHUSTER Address: [address] [place] [address] Name: ROXY DUENAS Address: home [address] [place] [address] Name: MEÑO DAVIS
--- OUTSIDE RECORDS SUMMARY | 2023-10-04 09:30 | XMS_ITS | Continuity of Care Document ---
Author Organization [facility] ter Address [address] [place] [id number]- Care Team Providers Care [employer] Chair Name Role Phone Jagdeep Pederson DO Primary Care Physician Encounter [facility] Date(s): 03/27/23 - 05/25/[address] [address] Attending Physician: Sarina Nettles MD Admitting Physician: Sarina Nettles MD Allergies, Adverse Reactions, Alerts Substance Reaction Severity Status amitriptyline hives Active alendronate Rash Active Demerol unsure Active Latex hives Active Peanuts hives Active Immunizations Given and Recorded Vaccine Date Status Refusal Reason SARS-CoV-2(COVID-19)mRNA-LNP vac([id number]) 03/23/23 Recorded influenza virus vaccine, inactivated 01/26/23 Qasim rded influenza virus vaccine, inactivated 03/28/22 Qasim rded influenza virus vaccine, inactivated 1 03/03/21 Gi joseph influenza virus vaccine, inactivated 05/12/19 Give n influenza virus vaccine, inactivated 02/11/17 Qasim rded influenza virus vaccine, inactivated 2 04/18/07 Gi joseph [id number] 12y+ bivalent booster vax 03/28/22 Recorded SARS-CoV-2 [...] diphtheria-tetanus toxoids (DT) 04/22/98 Given 1Result Comment: [id number] 2Admin Note: GIVEN BY DR PINZON 3Result Comment: [id number] Medications amLODIPine 5 mg oral tablet 1 tablet, By Mouth, Daily, ^1R1., # 28 tablet, 5 Refills, Maintenance, 01/10/23 10:32:00 EDT, [facility], 156.7, cm, 01/04/23 9:40:00 EDT, Height, 53.9, kg, 12/18/22 9:23:00 EDT, Dry Weight Start Date: 01/10/23 Status: Ordered atorvastatin 80 mg oral tablet 1 tablet = 80 mg, By Mouth, Daily, # 28 tablet, 5 Refills, Maintenance, 01/04/23 9:52:00 EDT, Tablet, [facility], Partial fill upon patient request if [...] 0 Refills, Maintenance, 08/28/22 14:39:00 EDT, Tablet, [facility], Partial fill upon patient request [...] tablet, 5 Refills, Maintenance, 01/10/23 12:22:00 EDT, [facility], 156.7, cm, 01/04/23 9:40:00 EDT, [...] tablet, 0 Refills, Maintenance, 04/02/23 10:44:00 EST, [facility], 158.5, cm, 04/02/23 7:47:00 EST, Height, [...] 180 tablet, 0Refills, Maintenance, 04/17/23 16:10:00 EST, [facility], Partial fill upon patient request if [...] Unknown Unknown Active U nknown 1Model: Medtronic [id number] #: [id number] can turn it on and off for MRIs Patient Care team information Care Team Personnel Name: Lily Mulligan RN Position: S RN Member Role: Primary Care Nurse Name: Anne Jones RN Position: S RN Member Role: Primary Care Nurse Name: Fred Islas RN Position: S RN Supv Member Role: Primary Care Nurse Name: Jagdeep Pederson DO Position: [facility] Physician - Primary Care Member Role: PCP Address: Address: [address] [place] [address] [place] [address]- Name: Hawa Etienne RN Position: S RN Member Role: Primary Care Nurse Name: Marianne Phelan RN Position: [facility] RN Member Role: Primary Care Nurse Care Team Related Persons Name: AMBERLYTRINI HEART Address: home [address] [place], [place] Name: ADAM SCHUSTER Address: home [address] [place], [place] Name: ROXY DUENAS Address: home [address] [place] [address] Name: MEÑO DAVIS
--- OUTSIDE RECORDS SUMMARY | 2023-10-04 09:31 | XMS_ITS | Continuity of Care Document ---
Author Organization [facility] Address [address] [place] [address]- Care Team Providers Care Cable Former Name Role Phone Jagdeep Pederson DO Primary Care Physician Encounter [facility] Date(s): 06/06/23 - 06/06/23 [facility] [address] [place] [address]- Discharge Disposition: A-D/C Home Attending Physician: Laury Sy MD Admitting Physician: Laury Sy MD Referring Physician: Not on Staff, Referring MD Allergies, Adverse Reactions, Alerts Substance Reaction Severity Status amitriptyline hives Active alendronate Rash Active Demerol unsure Active Latex hives Active Peanuts hives Active Immunizations Given and Recorded Vaccine Date Status Refusal Reason SARS-CoV-2(COVID-19)mRNA-LNP vac([id number]) 03/23/23 Recorded influenza virus vaccine, inactivated 01/26/23 Qasim rded influenza virus vaccine, inactivated 03/28/22 Qasim rded influenza virus vaccine, inactivated 1 03/03/21 Gi joseph influenza virus vaccine, inactivated 05/12/19 Give n influenza virus vaccine, inactivated 02/11/17 Qasim rded influenza virus vaccine, inactivated 2 04/18/07 Gi joseph [id number] 12y+ bivalent booster vax 03/28/22 Recorded SARS-CoV-2 [...] diphtheria-tetanus toxoids (DT) 04/22/98 Given 1Result Comment: [id number] 2Admin Note: GIVEN BY DR PINZON 3Result Comment: [id number] Medications amLODIPine 5 mg oral tablet 1 tablet, By Mouth, Daily, ^1R1., # 28 tablet, 5 Refills, Maintenance, 01/10/23 10:32:00 EDT, [facility], 156.7, cm, 01/04/23 9:40:00 EDT, Height, 53.9, kg, 12/18/22 9:23:00 EDT, Dry Weight Start Date: 01/10/23 Status: Ordered atorvastatin 80 mg oral tablet 1 tablet = 80 mg, By Mouth, Daily, # 28 tablet, 5 Refills, Maintenance, 01/04/23 9:52:00 EDT, Tablet, [facility], Partial fill upon patient request if [...] 0 Refills, Maintenance, 08/28/22 14:39:00 EDT, Tablet, [facility], Partial fill upon patient request if the prescription is for a schedule II opioid drug., 158.5, cm, ... Start Date: 08/28/22 Status: Ordered gabapentin 400 [...] tablet, 5 Refills, Maintenance, 01/10/23 12:22:00 EDT, [facility], 156.7, cm, 01/04/23 9:40:00 EDT, [...] opioid drug. Start Date: 03/31/23 Status: Ordered MorPHINE Inj 4 mg, Injection, IV Push Slowly, Every 30 minutes for 3 doses/times, PRN for Pain , Moderate, STAT,06/06/23 13:28:00 EST, Stop date Limited # of times Start Date: 06/06/23 Stop Date: 06/06/23 Status: Completed Nutritional Supplements See Instructions, # 60 each, [...] tablet, 0 Refills, Maintenance, 04/02/23 10:44:00 EST, [facility], 158.5, cm, 04/02/23 7:47:00 EST, Height, 51.6, kg, 03/31/23 17:10:00 EST, Dry Weight Start Date: 04/02/23 Status: Ordered pantoprazole 20 mg oral delayed release tablet 1 tablet, By Mouth, Daily, ^1R1., # 28 tablet, 2 Refills, Maintenance, 04/02/23 10:44:00 EST, 158.5, cm, 04/02/23 7:47:00 EST, Height, 51.6, kg, 03/31/23 17:10:00 EST, Dry Weight Start Date: 04/02/23 Status: Ordered Reglan 5 mg oral tablet 1 tablet = 5 mg, By Mouth, 4 times a day, as needed for nausea, # 21 tablet, 0 Refills, Acute 06/10/23 17:47:00 EST, 06/06/23 17:47:00 EST, Tablet, Partial fill upon patient request if the prescription is for a schedule II opioid drug., 158, cm, 06/06... Start Date: 06/06/23 Stop Date: 06/10/23 Status: Ordered sucralfate 1 gm oral tablet [...] # 180 tablet, 0Refills, Maintenance, 04/17/23 16:10:00 [facility], [facility], Partial fill upon patient request if [...] Disc degeneration, lumbar Confirmed Active Depression, Dr. Minitserio Villegas Confirmed Active Bladder disorder Confirmed Active [...] Exam Date Time Procedure Performing Provider Status 06/06/23 4:[address] Angio Abdomen and Pelvis Maria Dolores Ramirez Auth (Verified) Notes: (CT Angio Abdomen and Pelvis) Reason For Exam: Mesenteric ischemia, acute;Other: RESULT: CT Angio Abdomen and Pelvis CT Angio Abdomen and Pelvis INDICATION: Hx of Present Illness: ABD pain X months, worse today, nausea, poor PO intake, ? dehydration; Reason: Other:; Mesenteric ischemia, acute; Clinical Question(s): Other:; Generalized Abdominal Pain, Mesenteric Ischemia , Other: COMPARISON: None. TECHNIQUE: Axial images were obtained from diaphragm through the pelvis during the intravenous administration of iodinated contrast. 100 cc of Omnipaque 300 was administered intravenously. Delayed (venous) images were also acquired for evaluation of the portal veins. Sagittal and coronal maximum intensity projection (MIP) images were reconstructed and rendered in both arterial and venous phases. Weight-based protocol using automatic tube modulation was used to optimize exposure parameters. RADIATION DOSE PARAMETERS: VASCULAR FINDINGS: Abdominal aorta: No aortic aneurysm or dissection. Celiac axis: Patent. Superior mesenteric artery: Patent. Right renal artery: Patent. Left renal artery: Patent. Inferior mesenteric artery: Patent. Right common iliac artery: Patent. Right internal iliac artery: Patent. Right external iliac artery: Patent. Right common femoral artery: Patent. Visualized right superficial and deep femoral arteries: Patent. Left common iliac artery: Patent. Left internal iliac artery: Patent. Left external iliac artery: Patent. Left common femoral artery: Patent. Visualized left superficial and deep femoral arteries: Patent. IVC and hepatic veins: Patent. Portal vein: Patent. Splenic vein: Patent. Superior mesenteric vein: Patent. Inferior mesenteric vein: Patent. Iliac and femoral veins: Patent. NONVASCULAR FINDINGS: Visualized Chest: Lung bases are clear. No pleural effusion. The heart is normal in size. No pericardial effusion. Diaphragm: Normal. Liver: Normal. A subcentimeter hypodense lesion at the dome right lobe, likely representing cysts. Gallbladder: Absent consistent with prior cholecystectomy. Bile ducts: Dilated extrahepatic common bile duct measuring 1.7 cm with gradual tapering. No definite evidence of filling defect or obstruction. This is unchanged from multiple prior examination, is likely related to age-related and post cholecystectomy changes.. Spleen: Normal. Pancreas: Normal. Adrenal glands: Normal. Kidneys and ureters: No hydronephrosis, stones, or suspicious masses. Bladder: Mildly distended urinary bladder. Reproductive organs: Unremarkable. Stomach, small bowel, and large bowel: Moderate stool retention throughout the colon. Few scattereddiverticula throughout the colon without evidence of inflammation. No bowel obstruction. Appendix: Not seen, but no evidence of appendicitis. Peritoneum and retroperitoneum: No ascites or pneumoperitoneum. No omental or mesenteric lesions. Lymph nodes: No enlarged lymph nodes. Abdominal and pelvic wall: Neurostimulator device in the soft tissue of right lumbar region. Bones: Mild multilevel degenerative changes in the thoracolumbar spine.. IMPRESSION: 1. No evidence of mesenteric ischemia. 2. No acute pathology in the abdomen and pelvis. 3. Mild-moderate constipation. I have personally reviewed the images and I agree with this report. WSN: [id number] Ordering Physician: Jennifer German Dictated By: Jocelin Jarrell MD Dictated Date/Time: 06/06/23 5:13 pm Reviewed By: Ibrahima Santana MD Signed By: Ibrahima Santana MD Signed Date/Time: 06/06/23 5:18 pm Transcribed By: RAYMOND Transcribed Date/Time: 06/06/23 4:59 pm Vital Signs Most recent to oldest [Reference Range]: 1 2 3 Height 158 cm (06/06/23 6:01 PM) 158 cm (06/06/23 2:37 PM) 158 cm (06/06/23 1:20 PM) Weight 57 kg (06/06/23 6:01 PM) 57 kg (06/06/23 2:37 PM) 57 kg (06/06/23 1:20 PM) Oxygen Saturation [94-100 %] 100 % (06/06/23 6:01 PM) 100 % (06/06/23 2:37 PM) 98 % (06/06/23 1:05 PM) Pulse Rate [55-90 bpm] 63 bpm (06/06/23 6:01 PM) 66 bpm (06/06/23 2:37 PM) 65 bpm (06/06/23 1:05 PM) Body Mass Index [18.5-24.99 kg/m2] 22.83 kg/m2 (06/06/23 6:01 PM) 22.83 kg/m2 (06/06/23 2:37 PM) 22.83 kg/m2 (06/06/23 1:05 PM) Blood Pressure [90-138/55-84 mm Hg] 173/74mm Hg *H* (06/06/23 6:01 PM) 137/62mm Hg (06/06/23 2:37 PM) 153/64mm Hg *H* (06/06/23 1:05 PM) Respiratory Rate [16-30 br/min] 18 br/min (06/06/23 6:39 PM) 16 br/min (06/06/23 6:01 PM) 18 br/min (06/06/23 5:20 PM) Temperature [96.8-100.4 DegF] 97.4 DegF (06/06/23 6:01 PM) 97.7 DegF (06/06/23 2:37 PM) 97.1 DegF (06/06/23 1:05 PM) Mode of Delivery (Oxygen) Room air (06/06/23 6:01 PM) Room air (06/06/23 2:37 PM) Room air (06/06/23 1:05 PM) Blood pressure sites Arm, right (06/06/23 6:01 PM) Arm, right (06/06/23 2:37 PM) Arm, right (06/06/23 1:05 PM) Temperature Route Temporal (06/06/23 6:01 PM) Temporal (06/06/23 2:37 PM) Tympanic (06/06/23 1:05 PM) Dry Weight 57 kg (06/06/23 6:01 PM) 57 kg (06/06/23 2:37 PM) 57 kg (06/06/23 1:20 PM) Social History Social History Type Response Tobacco Other: quit 1969. Sex Implantable Device List Procedure Provider Procedure Date Device Type Site Unknown Unknown 09/14/22 Unknown Bladder Device Identifier Serial Number Lot or Batch Number Manufacturing Date Expiration Date Distinct Identification Code MRI Safety Implantable Status Assigning Authority Unknown 1 Unknown Unknown Unknown Unknown Unknown Unknown Active U nknown 1Model: Medtronic [id number] #: [id number] can turn it on and off for MRIs Note * Kerrie SINCLAIR, Laury Parkinson: PERFORM Event Display: Patient Education Leaflets Authored Date: [id number] Unknown Causes of Abdominal Pain(Adult) ?? [id number] Unknown Causes of Abdominal Pain(Adult) The exact cause of your belly (abdominal) pain is not clear. Your exam and tests don't suggest a dangerous cause at this time. This does not mean that this is something to worry about. Everyone likesto know the exact cause of the problem. But sometimes with belly pain, there is no clear-cut cause,and this could be a good thing. Your symptoms can be treated, and you should feel better.?? Your condition does not seem serious now. But sometimes the signs of a serious problem may take more time to appear. For this reason,??it's important for you to watch for any new symptoms, problems,??or worsening of your condition. Over the next few days, the abdominal pain may come and go. Or it may be constant. Other common symptoms can include nausea and vomiting. Sometimes it can be difficult to tell if you feel nauseous. You may just feel bad and not connect that feeling to nausea. Constipation, diarrhea, and a fever maygo along with the pain. The pain may continue even if treated correctly over the following days. Depending on how things go, sometimes the cause can become clear and you may need more??or different treatment. You may also need other evaluations, medicines, or tests. Home care Your healthcare provider may prescribe medicine for pain, symptoms, or an infection. ??Follow the healthcare provider's instructions for taking these medicines. General care ??? Rest as much as you can until your next exam. No strenuous activities. ??? Try to not do anything that may have caused your symptoms. This might be not taking any medicines unless otherwise directed by your healthcare provider. It might be not eating certain foods or doing certain activities. ??? Find positions that ease discomfort. A small pillow placed on your belly may help relieve pain. ??? Something warm on your belly such as a heating pad may help, but be careful not to burn yourself. Diet ??? Don???t??force yourself to eat, especially if having cramps, vomiting, or diarrhea. ??? Water is important so you don't get dehydrated. Soup may also be good. Sports drinks may also help, especially if they are not too acidic. Don't drink sugary drinks as this can make things worse. Take liquids in small amounts. Don???t??guzzle them. ??? Caffeine sometimes makes the pain and cramping worse. ??? Don???t take??dairy products if you have vomiting or diarrhea. ??? Don't eat large amounts at a time. Eat several small meals during the day instead of 2 or 3 larger meals. Wait a few minutesbetween bites. ??? Eat a diet low in fiber (called a low-residue diet). Foods allowed include refined breads, white rice, fruit and vegetable juices without pulp, tender meats. These foods will pass more easily through the intestine. ??? Don???t have??whole-grain foods, whole fruits and vegetables,meats, seeds and nuts, fried or fatty foods, dairy, alcohol and spicy foods until your symptoms go away. ?? Follow-up care Follow up with your healthcare provider, or as advised, if your pain does not begin to improve in the next 24 hours. ?? Call 911 Call?? 911 if any of these occur: ??? Trouble breathing ??? Confusion ??? Fainting or loss of consciousness ??? Rapid heart rate ??? Seizure ?? When to seek medical advice Call your healthcare provider right away if any of these occur: ??? Pain gets worse or moves to theright lower abdomen ??? New or worsening vomiting or diarrhea ??? Swelling of the abdomen ??? Unable to pass stool for more than??3 days ??? Fever of 100.4??F (38??C) or higher, or as directed by your healthcare provider ??? Blood in vomit or bowel movements (dark red or black color) ??? Yellow color of eyes and skin (jaundice) ??? Weakness, dizziness ??? Chest, arm, back, neck, or jaw pain ??? Can't keep down medicines, liquids, or water because of too much vomiting ??? If you have a vagina: unexpected vaginal bleeding or missed period ?? Last Reviewed Date: 2021 ?? 5680-4363 The [employer]. All rights reserved. This information is not intended as a substitute for professional medical care. Always follow your healthcare professional's instructions. ?? Patient Care team information Care Team Personnel Name: Lily Mulligan RN Position: [facility] RN Member Role: Primary Care Nurse Name: Anne Jones RN Position: S RN Member Role: Primary Care Nurse Name: Fred Islas RN Position: [facility] [place] Supv Member Role: Primary Care Nurse Name: Jagdeep Pederson DO Position: [facility] Physician - Primary Care Member Role: PCP Address: Address: [address] [place] [address] [place] [address]- Name: Hawa Etienne RN Position: S RN Member Role: Primary Care Nurse Name: Marianne Phelan RN Position: [facility] RN Member Role: Primary Care Nurse Name: Festus Real RN Position: [facility] ED RN W/OE and Tasks Member Role: Patient Care Provider Name: Laury Sy MD Position: [facility] Resident Member Role: Admitting Physician Address: Address: [address] [place] [address] [place] [address]- [place] Care Team Related Persons Name: TRINI GAMING Address: home [address] [place] [address] Name: ADAM SCHUSTER Address: home [address] [place] [address] Name: ROXY DUENAS Address: home [address] [place] [address] Name: MEÑO DAVIS Address: [place] [address]
--- OUTSIDE RECORDS SUMMARY | 2023-10-04 09:31 | XMS_ITS | Continuity of Care Document ---
Author Organization [facility] Address [address] [place] [address]- Care Team Providers Care Remediation Project Engineer Name Role Phone Jagdeep Pederson DO Primary Care Physician Encounter [facility] Date(s): 07/08/23 - 08/07/23 [facility] [address] [place] [address]- Allergies, Adverse Reactions, Alerts Substance Reaction Severity Status amitriptyline hives Active alendronate Rash Active Demerol unsure Active Latex hives Active Peanuts hives Active Immunizations Given and Recorded Vaccine Date Status Refusal Reason SARS-CoV-2(COVID-19)mRNA-LNP vac([id number]) 03/23/23 Recorded influenza virus vaccine, inactivated 01/26/23 Qasim rded influenza virus vaccine, inactivated 03/28/22 Qasim rded influenza virus vaccine, inactivated 1 03/03/21 Gi joseph influenza virus vaccine, inactivated 05/12/19 Give n influenza virus vaccine, inactivated 02/11/17 Qasim rded influenza virus vaccine, inactivated 2 04/18/07 Gi joseph [id number] 12y+ bivalent booster vax 03/28/22 Recorded SARS-CoV-2 [...] diphtheria-tetanus toxoids (DT) 04/22/98 Given 1Result Comment: [id number] 2Admin Note: GIVEN BY DR PINZON 3Result Comment: [id number] Medications amLODIPine 5 mg oral tablet 1 tablet, By Mouth, Daily, ^1R1., # 28 tablet, 5 Refills, Maintenance, 01/10/23 10:32:00 EDT, [facility], 156.7, cm, 01/04/23 9:40:00 EDT, Height, 53.9, kg, 12/18/22 9:23:00 EDT, Dry Weight Start Date: 01/10/23 Status: Ordered atorvastatin 80 mg oral tablet 1 tablet = 80 mg, By Mouth, Daily, # 28 tablet, 5 Refills, Maintenance, 01/04/23 9:52:00 EDT, Tablet, [facility], Partial fill upon patient request if [...] 0 Refills, Maintenance, 08/28/22 14:39:00 EDT, Tablet, [facility], Partial fill upon patient request [...] tablet, 5 Refills, Maintenance, 01/10/23 12:22:00 EDT, [facility], 156.7, cm, 01/04/23 9:40:00 EDT, Height, [...] tablet, 0 Refills, Maintenance, 04/02/23 10:44:00 EST, [facility], 158.5, cm, 04/02/23 7:47:00 EST, Height, [...] Unknown Unknown Active U nknown 1Model: Medtronic [id number] #: [id number] can turn it on and off for MRIs Patient Care team information Care Team Personnel Name: Lily Mulligan RN Position: S RN Member Role: Primary Care Nurse Name: Anne Jones RN Position: S RN Member Role: Primary Care Nurse Name: Fred Islas RN Position: [facility] RN Supv Member Role: Primary Care Nurse Name: Jagdeep Pederson DO Position: [facility] Physician - Primary Care Member Role: PCP Address: Address: [address] [place] [address]- Name: Hawa Etienne RN Position: S RN Member Role: Primary Care Nurse Name: Marianne Phelan RN Position: S RN Member Role: Primary Care Nurse Care Team Related Persons Name: TRINI GAMING Address: home [address] [place] [address] Name: ADAM SCHUSTER Address: [address] [place] [address] Name: ROXY DUENAS Address: [address] [place] [address] Name: MEÑO DAVIS Address: [place] [address]
--- OUTSIDE RECORDS SUMMARY | 2023-10-04 09:31 | XMS_ITS | Continuity of Care Document ---
Author Organization [facility] Address [address] [place] [address]- Care Team Providers Care Associate Quality Engineer Name Role Phone Jagdeep Pederson DO Primary Care Physician [place] [facility] [place]): [place]22 - 03/29/23 [facility] [address] [place] [address]- Attending Physician: Katie SINCLAIR, Madelaine Sanches Admitting Physician: Katie SINCLAIR, Madelaine Sanches Allergies, Adverse Reactions, Alerts Substance Reaction Severity Status amitriptyline hives Active Demerol unsure Active Latex hives Active Peanuts hives Active alendronate Rash Active Immunizations Given and Recorded Vaccine Date Status Refusal Reason SARS-CoV-2(COVID-19)mRNA-LNP vac([id number]) 03/23/23 Recorded influenza virus vaccine, inactivated 01/26/23 Qasim rded influenza virus vaccine, inactivated 03/28/22 Qasim rded influenza virus vaccine, inactivated 1 03/03/21 Gi joseph influenza virus vaccine, inactivated 05/12/19 Give n influenza virus vaccine, inactivated 02/11/17 Qasim rded influenza virus vaccine, inactivated 2 04/18/07 Gi joseph [id number] 12y+ bivalent booster vax 03/28/22 Recorded SARS-CoV-2 [...] diphtheria-tetanus toxoids (DT) 04/22/98 Given 1Result Comment: [id number] 2Admin Note: GIVEN BY DR PINZON 3Result Comment: [id number] Medications amLODIPine 5 mg oral tablet 1 tablet, By Mouth, Daily, ^1R1., # 28 tablet, 5 Refills, Maintenance, 01/10/23 10:32:00 EDT, [facility], 156.7, cm, 01/04/23 9:40:00 EDT, Height, 53.9, kg, 12/18/22 9:23:00 EDT, Dry Weight Start Date: 01/10/23 Status: Ordered atorvastatin 80 mg oral tablet 1 tablet = 80 mg, By Mouth, Daily, # 28 tablet, 5 Refills, Maintenance, 01/04/23 9:52:00 EDT, Tablet, [facility], Partial fill upon patient request if the prescription is for a schedule II opioid drug., 156.7, cm, 01/04/23 9:40:00 EDT, Height,... Start Date: 01/04/23 Status: Ordered clonazePAM 0.5 mg oral tablet 1 tablet = 0.5 mg, By Mouth, 2 times a day, PRN Anxiety, # 30 tablet, 0 Refills, Maintenance, 08/28/22 14:39:00 EDT, Tablet, [facility], Partial fill upon patient request if the prescription is for a schedule II opioid drug., 158.5, cm, ... Start Date: 08/28/22 Status: Ordered D3-50 oral capsule 1 tablet, By Mouth, Every week, VIAL., # 5 capsule, 0 Refills, Maintenance, 02/21/23 9:07:00 EDT, [facility], 158, cm, 02/14/23 11:08:00 EDT, Height, [...] 5 Refills, Maintenance, 08/28/22 13:39:00 EDT, Capsule, [facility], Partial fill upon patient request if the prescription is for aschedule II opioid drug., 158.5, cm, 07/31/22 9:53:... Start Date: 08/28/22 Status: Ordered melatonin 3 mg oral tablet = 9 mg, By Mouth, Daily at bedtime, # 270 tablet, 5 Refills, Maintenance, 08/28/22 13:39:00 EDT, Tablet, [facility], Partial fill upon patient request if [...] tablet, 5 Refills, Maintenance, 01/10/23 12:22:00 EDT, [facility], 156.7, cm, 01/04/23 9:40:00 EDT, Height, [...] tablet, 0 Refills, Maintenance, 03/04/23 10:28:00 EDT, [facility], 158, cm, 03/04/23 7:43:00 EDT, Height, [...] 8:44:00 EST, 03/20/23 8:44:00 EDT, DIS Tablet, [facility] #[id number], Par... Start Date: 03/20/23 Stop Date: 05/01/23 [...] tablet, 8 Refills, Maintenance, 08/28/22 13:39:00 EDT, [facility], 158.5, cm, 07/31/22 9:53:00 EST, Height, 63, kg, 12/12/21 15:07:00 EDT, Dry Weight Start Date: 08/28/22 Status: Ordered trimethobenzamide 300 mg oral capsule 1 capsule = 300 mg, By Mouth, 3 times a day, PRN as needed for nausea/vomiting, # 45 capsule, 0 Refills, Acute 08/03/23 13:06:00 EST, 02/15/23 13:05:00 EDT, Capsule, [facility] #[id number], Partial fill upon patient request if the prescription is... Start Date: 02/15/23 Stop Date: 08/03/23 Status: Ordered warfarin 5 mg oral tablet See Instructions, take 1 to 2 tablets by mouth daily as directed by [facility], # 180 tablet, 0Refills, Maintenance, 03/04/23 10:40:00 EDT, [id number], Partial fill upon patient request if the [...] Unknown Unknown Active U nknown 1Model: Medtronic [id number] #: [id number] can turn it on and off for MRIs Patient Care team information Care Team Personnel Name: Lily Mulligan RN Position: [facility] RN Member Role: Primary Care Nurse Name: Anne Jones RN Position: [facility] RN Member Role: Primary Care Nurse Name: Fred Islas RN Position: [facility] RN Supv Member Role: Primary Care Nurse Name: Jagdeep Pederson DO Position: [facility] Physician - Primary Care Member Role: PCP Address: Address: [address] [place] [address] [place] [address]- Name: Lowell RN, Hawa Position: S RN Member Role: Primary Care Nurse Name: Marianne Phelan RN Position: [facility] RN Member Role: Primary Care Nurse Care Team Related Persons Name: TRINI GAMING Address: home [address] [place] [address] Name: ADAM SCHUSTER Address: home [address] [place], [place] Name: ROXY DUENAS Address: home [address] [place] [address] Name: MEÑO DAVIS
== END 2023-10-04 10:28 | disposition home or self-care (01) ==
PROVIDERS: PCP Family Medicine; Visit Provider Nurse Practitioner Family
DX: G25.0 Essential tremor (principal); G24.01 Drug induced subacute dyskinesia; G43.009 Migraine without aura, not intractable, without status migrainosus; R26.9 Unspecified abnormalities of gait and mobility
CPT/HCPCS: 99214

== ENCOUNTER → 2023-10-04 09:26 | Outpatient (BNVA) | payer OTHER, SELFPAY | PROVIDERS: PCP Family Medicine; Visit Provider Nurse Practitioner Family | DX: G25.0 Essential tremor (principal); G24.01 Drug induced subacute dyskinesia; G43.009 Migraine without aura, not intractable, without status migrainosus; R26.9 Unspecified abnormalities of gait and mobility; Z79.899 Other long term (current) drug therapy | CPT/HCPCS: 99212 ==

== ENCOUNTER 2024-07-08 08:22 | Outpatient (AMB) | payer OTHER, SELFPAY ==
--- NOTE | 2024-07-08 08:47 | A.OFFVIS_ITS ---
Vital Signs 07/08/24 09:02 Height 5 ft 2 in Weight 165 lb BMI 30.2 BP 140/90 H Blood Pressure Location Lt brachial Position Sitting Pulse 73 Pulse Source Pulse Oximeter Pulse Oximetry (%) 96 Oxygen Delivery Method Room Air Intake Visit Reasons: follow up [employer] L[employer] Required: No Accompanied by: Self / Same As Patient Allergies alendronate sodium Allergy (Severe, Verified 07/08/24 08:53) Rash amitriptyline Allergy (Severe, Verified 07/08/24 08:53) Hives latex Allergy (Severe, Verified 07/08/24 08:53) Hives meperidine [From Demerol] Allergy (Unknown, Verified 07/08/24 08:53) Unknown Medication List - Last Reconciled 07/08/24 by PETEY Schaeffer amlodipine 5 mg PO DAILY apixaban (Eliquis) 5 mg PO BID atorvastatin 80 mg PO DAILY benztropine 0.5 mg PO DAILY carbidopa-levodopa 25-100 mg 1 tab PO BID 30 days clonazepam 0.5 mg PO DAILY PRN docusate sodium 100 mg PO DAILY escitalopram oxalate 10 mg PO DAILY escitalopram oxalate 5 mg PO DAILY famotidine 0 mg PO gabapentin 400 mg PO TID hydroxyzine pamoate 25 mg PO BID magnesium oxide 400 mg PO BEDTIME 30 days melatonin 0 mg PO methylphenidate HCl ER 54 mg PO DAILY metoclopramide HCl 5 mg PO QIDACHS metoprolol succinate ER 25 mg PO DAILY mirtazapine 15 mg PO BEDTIME olanzapine 5 mg PO BEDTIME ondansetron HCl 0 mg PO pantoprazole 20 mg PO DAILY polyethylene glycol 3350 17 grams PO DAILY promethazine 25 mg PO BID riboflavin (vitamin B2) 400 mg PO DAILY 30 days rimegepant (Nurtec ODT) 75 mg PO ONCE PRN 30 days MDD 1 tab sucralfate 1 g PO BID [id number]-ceezbvh(PF) 0.5-2-0.005 % drps ophthalmic (eye) trazodone 150 mg PO BEDTIME HPI Comments Details: 73-yr-old female presents for f/u visit of tremor and migraine. She states about 4 weeks ago, she fell while walking down the stairs at her daughter's home- states she does not recall how she fell, just coming to at the bottom of the stairs. She initially felt ok, but then started not feeling well all over - back pain etc. She states she went to [facility] [place]- however, there are no records in her chart of this. She states she was told she had a left lower back hematoma. She was tx'd for anemia, was given RBC x's 2. Was d/c'd back to [facility] the next day. She states she was supposed to have out-pt PT, but it never happened. Pt reports she has had some other falls as well. Sometimes when she starts walking, then her feet are moving too fats and she cannot stop them. Sometimes david right leg feels stuck. Sometimes she can tell when she will be more at risk for falls, when she stands up and has low back pain. She has a walker, which does help. Pt's current tremor medication regimen: CD-LD 25-100mg 1 tab bid. Benzotropine- 0.5mg. ADL's: Ind Swallowing: Denies any issues Drooling: Denies Orthostatic lightheadedness: If stands too quickly Constipation: Yes- manages w/ bowel regimen. GI: Prone to nausea, especially in the am. Using Zofran 8mg prn helps. Does not use reglan regularly. Freezing: Denies Stiffness: Some in both arms Oral-lingual movement- stable, does not interfere w/ eating. Tremor: BUE, L > R, action and rest tremor. Gait/Freezing: as above Falls: as above Hallucinations: Denies Memory: Feels her memory is poor- more so STM lapses. Sleep: Sleeping ok. Exercise: She does the exercise class 3 x's per week. Does walk in the hallways, but not able to walk outside like she does in the warmer weather. Her migraines are better overall. However, she is still having 3 migraine days per week. She still needs to lie down. She states she never started emgality or nurtec. . [facility] Medical History (Updated 07/08/24 @ 19:28 by PETEY Schaeffer) History of breast cancer Osteoporosis HTN (hypertension) Depression History of hepatitis C Cirrhosis of liver CTS (carpal tunnel syndrome) Surgical History H/O: hysterectomy Hx of appendectomy Hx of cholecystectomy Family History Mother Cancer HTN (hypertension) Social History Alcohol intake: former Patient Tobacco Use Status: Never used Tobacco Substance Use Type: Marijuana Physical Exam Vital Signs: Last Vital Signs Pulse 73 07/08/24 09:02 BP 140/90 H 07/08/24 09:02 Pulse Ox 96 07/08/24 09:02 Oxygen Delivery Method Room Air 07/08/24 09:02 BMI result Body Mass Index 30.2 Const General: cooperative and no acute distress Resp Effort & Inspection: normal respiratory effort and able to speak in complete sentences Neuro Other: General: Alert and oriented x3 Expression: Intact Voice: Soft Tremor: BUE L > R postural mild tremor Tone: BUE, L > R, rigidity. LLE mild tightness in hip flexion. Dyskinesia: Mild oral-buccal movements. FFM: Slightly decreased on left Foot taps: Slightly decreased on left Gait: Stands easily, slight stoop, decreased left arm swing, shorter steps, shuffling- more on left, multiple steps to turn. Pt did not bring walker today. Psych: Pleasant affect Assessment & Plan Assessment & Plan (1) Essential tremor: Comment: Mother and dtr have tremor. Code(s): G25.0 - Essential tremor Category: Medical (2) Gait difficulty: Code(s): R26.9 - Unspecified abnormalities of gait and mobility Category: Medical (3) Tardive dyskinesia: Code(s): G24.01 - Drug induced subacute dyskinesia Category: Medical (4) Migraine without aura: Code(s): G43.009 - Migraine without aura, not intractable, without status migrainosus Category: Medical (5) Repeated falls: Code(s): R29.6 - Repeated falls Category: Medical Plan For TD, PDism, gait difficulty: Increase carbidopa-levodopa 25-100 mg from 1 tab b.i.d. to 1 tab t.i.d. May continue Benzotropine 0,5mg qhs for now. Patient encouraged to use 4 wheeled walker at all times. Discussed simple strategies to break freezing gait and festinating gait-such as STEMI in place, stepping in place, tapping her hip, using her walker. We will request home PT eval and treat, for falls, gait difficulties. Patient is homebound, as she requires assistive device and assist with transportation to leave the rest home safely due to high-risk for falls. For migraine w/o aura prevention: Riboflavin 400 mg q.a.m. Magnesium 400 mg q.h.s. Start Emgality 120mg/ml auto-injection: Loading dose: 240mg (2 120mg/ml auto-injections) via subcutaneous injection in 2 different sites). Then 30 days after loading dose, start Maintenance dose: 120mg (120mg/ml autoinjector) subcutaneous injection every month. Patient requests injection training once Emgality available, if nursing at her restroom can not provide Emgality injection for her.. Important considerations: * Emgality will likely require insurance prior authorization prior to receiving it from the pharmacy. * Potential side effects include allergic reaction and injection site reactions. * Emgality injection training educational video is available to view on [email or web address] * Store Emgality in the refrigerator in it's original packaging in order to protect from light. * Remove Emgality at least 1 hour prior to taking the injection. * Emgality can be left out of the fridge for?up to 7 days at a temperature not above 86?F. If either of these conditions are exceeded, then Emgality must be thrown away. * Once Emgality has been stored out of refrigeration, do not place it back in the refrigerator. Continue Metoprolol- used for a-fib, BP. Previous migraine prevention trials: Amitriptyline caused hives For acute migraine tx: Start Nurtec ODT 75 mg q.d. p.r.n. Will need prior-auth. May take Nurtec with Tylenol 650-1000 mg p.o. q.4-6 hours p.r.n. (max 3000 mg per day), goal is not to exceed 15 days per month of use. Previous acute migraine treatment trials: Sumatriptan- unsure of affect. Acute migraine treatment Contraindications: All triptans due to the atrial fibrillation diagnosis Will reach out to [facility] to review plan. Follow-up in 6 months or sooner as needed Orders: Referrals [facility] Referral G24.01 - Drug induced subacute dyskinesia, G25.0 - Essential tremor, R26.9 - Unspecified abnormalities of gait and mobility, R29.6 - Repeated falls Medications: New galcanezumab-gnlm (Emgality Pen) Loading dose: 120 mg subcu injection x2 in alternate sites (total 240 mg). To be followed by maintenance dose of 120 mg subcu q.month. 240 mg (2 mL) subcut ONCE 30 days 2 mL 0RF Changed From carbidopa-levodopa 25-100 mg take w/ a cracker 30 minutes before breakfast and dinner, 1 tab PO BID 30 days 60 tabs 3RF To carbidopa-levodopa 25-100 mg take w/ a cracker 30 minutes before breakfast and dinner, 1 tab PO TID 30 days 90 tabs 6RF Refilled rimegepant (Nurtec ODT) 75 mg PO ONCE 30 days PRN 16 tabs 6RF migraine headache MDD 1 tab G43.009 - Migraine without aura, not intractable, without status migrainosus magnesium oxide may hold for loose stools 400 mg PO BEDTIME 30 days 30 tabs 6RF G43.009 - Migraine without aura, not intractable, without status migrainosus riboflavin (vitamin B2) in am 400 mg PO DAILY 30 days 30 tabs 6RF G43.009 - Migraine without aura, not intractable, without status migrainosus Coding Level of Care Code Est Pt Level 4 (69258) Complex EM visit Add On G2211 Diagnoses Essential tremor G25.0 Gait difficulty R26.9 Tardive dyskinesia G24.01 Migraine without aura G43.009 Repeated falls R29.6
[2024-07-08 09:02] VITALS: BP 140/90; PULSE 73; O2SAT 96; BMI 30.2
== END 2024-07-08 09:53 | disposition home or self-care (01) ==
LOC: HO.HSMS 08:22
PROVIDERS: PCP Family Medicine; Visit Provider Nurse Practitioner Family
DX: G25.0 Essential tremor (principal); R26.9 Unspecified abnormalities of gait and mobility; G24.01 Drug induced subacute dyskinesia; G43.009 Migraine without aura, not intractable, without status migrainosus; R29.6 Repeated falls
CPT/HCPCS: 99214; G2211

== ENCOUNTER → 2024-07-08 08:22 | Outpatient (BNVA) | payer OTHER, SELFPAY | PROVIDERS: PCP Family Medicine; Visit Provider Nurse Practitioner Family | DX: R26.9 Unspecified abnormalities of gait and mobility (principal); R29.6 Repeated falls; G24.01 Drug induced subacute dyskinesia; G43.009 Migraine without aura, not intractable, without status migrainosus; G25.0 Essential tremor | CPT/HCPCS: 99212 ==